=== PATIENT | male | born 1960 | race Caucasian/White ===

== ENCOUNTER 2020-08-15 06:18 | Emergency (ER) | payer OTHER, SELFPAY ==
[2020-08-15 06:49] VITALS: BP 151/92; PULSE 93; RESP 16; TEMP 37; O2SAT 98; BMI 31.5
--- NOTE | 2020-08-15 07:05 | ED.MALEGU ---
HPI - Male Genitourinary General Chief complaint: Urogenital-Male Stated complaint: rectal pain Time Seen by Provider: 08/15/20 06:40 Source: patient Mode of arrival: ambulatory Limitations: no limitations History of Present Illness HPI Narrative: 60-year-old male who presents emergency department for evaluation of rectal pain. The patient states the 4 days prior he was moving his bowels when he sneezed while he was on the toilet. He states that he developed immediate pain in his rectal area. Since the onset of pain, he has had severe rectal pain which is constant, sharp, worse with sitting and with bowel movements. Patient states he does have a history of hemorrhoids. He also has a skin tag in the area of his rectum and he states that this skin tag is extremely painful as well. Patient states that he does move his bowels daily and does not believe these constipated. The patient does have a history of chronic back pain and does take oxycodone 10 mg 4 times a day. He states that this medication is not helping his rectal pain. The pain is currently 10/10. He has been soaking in warm baths and this does help his pain. He has not done any other treatments on his hemorrhoid. Related Data Allergies Allergy/AdvReac Type Severity Reaction Status Date / Time morphine [MORPHINE] Allergy Intermediate HIVES Unverified 11/02/19 14:54 Review of Systems Review of Systems: Yes all other systems are reviewed and are negative [facility] [place] Past Medical History [facility] [place] Narrative: Past medical history: chronic neck and back pain. Past surgical history: Cervical and lumbar spinal fusions. Social history: He denies tobacco, alcohol and drug use. Physical Exam Vital Signs: Vital Signs: Last Vital Signs Temp 98.6 F 08/15/20 06:49 Pulse 93 08/15/20 06:49 Resp 16 08/15/20 06:49 BP 151/92 H 08/15/20 06:49 Pulse Ox 98 08/15/20 06:49 Body Mass Index 31.5 Const: General: cooperative and healthy appearing Nutritional Appearance: average body habitus Orientation/consciousness: oriented to person and oriented to place Limitations: no limitations HENMT: Head: Yes normocephalic and Yes atraumatic Eyes: General: appearance normal, both eyes and all related structures Resp: Effort & Inspection: normal respiratory effort : Other: The patient does have a skin tag at the 3 o'clock position around the rectumon his buttocks areawhich appears to be normal, with no inflammation, no discoloration, no tenderness palpation. the patient does have a 1 cm inflamed hemorrhoid at the 3 o'clock position. The hemorrhoid is soft but tender to palpation, does not appear to be clotted in there was no bleeding at this time. Neuro: Other: Nonfocal General: oriented to person and oriented to place Psych: Appearance: grossly normal and well kempt Mental Status: mental status grossly normal Speech and movement: Normal speech and movement present Affect: normal affect Course Course Course Narrative: 60-year-old male who presents emergency department for evaluation of severe rectal pain x4 days. Physical examination is consistent with an inflamed hemorrhoid, at this time I do not think that the hemorrhage is thrombosed. He does have a skin tag lateral to the rectum which appears to be uninvolved in his pain, there is no evidence of cellulitis or ischemic changes. At this time I do not think that the patient needs a thrombectomy of his hemorrhoid since I do not think it is clotted in the did discuss this with him. Patient was started on preparation H with hydrocortisone cream 4 times a day, preparation H suppositories twice a day and after each bowel movement, Metamucil 1 tsp in 8 oz of water twice a day and Colace 100 mg twice a day. Patient has seen Dr. Lopez in the past and he was advised to follow-up his it solutions sales consultant in 4-7 days if he is not better, he was also given the name of the on-call surgeon as well. The patient was given verbal and printed instructions prior to discharge. The patient was advised to follow-up with their PCP in 2 days and to return to the emergency department if their symptoms get worse or if they develop any new symptoms that are concerning to them Discharge Plan Discharge Clinical Impression: Hemorrhoids, external, Pain in rectum Patient Disposition: Home, Self-Care Instructions: Hemorrhoids (ED) Additional Instructions: Your pain is caused by an inflamed hemorrhoid. You do have a skin tag outside of your rectum but this is not tender and I do not think that it is causing the pain. Use preparation H with hydrocortisone cream 4 times a day on the hemorrhoid and insert a small amount into rectum using the attachment that comes with the hemorrhoid cream. Also apply this cream after bowel movement. Use preparation H suppositories twice a day and after each bowel movement. Take Colace ( this is a stool softener) twice a day Take Metamucil 1 tsp in 8 oz of water twice a day. uses medications for 2 weeks. Sit on a heating pad on low for soak in a bathtub for times a day to increase the blood flow to the hemorrhoid to help the healing process. Follow-up with your it solutions sales consultant, Dr. Lopez within 1 week for follow-up evaluation to make sure that the hemorrhoid is not thrombosed ( has a blood clot in). You can also follow-up with our on-call surgeon, Referrals: Castro Lopez [Physician] - 1 week ( rectal pain secondary to inflamed hemorrhoid) Darlene Salazar MD [Physician] - 1 week ( rectal pain secondary to inflamed hemorrhoid)
== END 2020-08-15 07:35 | disposition home or self-care (01) ==
LOC: HO.ED 07:18
PROVIDERS: Emergency Provider Emergency Medicine Emergency Medical Services; PCP Internal Medicine
DX: K64.4 Residual hemorrhoidal skin tags (principal); G89.29 Other chronic pain; M54.9 Dorsalgia, unspecified; Z79.891 Long term (current) use of opiate analgesic
CPT/HCPCS: 99283

== ENCOUNTER → 2020-08-22 14:04 | Outpatient (BNVA) | payer OTHER, SELFPAY | PROVIDERS: PCP Internal Medicine; Visit Provider Surgery | DX: K60.3 Anal fistula (principal) | CPT/HCPCS: 46600; 99202 ==

== ENCOUNTER 2020-09-20 05:57 | Day surgery (SDC) | payer OTHER, SELFPAY ==
[2020-09-13 14:27] VITALS: BMI 30.7
--- NOTE | 2020-09-19 08:26 | P.CONAN_ITS ---
Documented by User: Katarzyna Alessia 09/19/20 08:27 HPI - Anesthesia Eval Consult details Narrative: 60yo M for Exam Under Anesthesia, Poss Seton, Poss Fistulotomy Chronic opioids PMFSH Active Problems Active Problems: All Active Problems (Updated 09/13/20 @ 14:27 by Joyce Williamson) Anal fistula (Acute) Asthma (Acute) Hypertension (Acute) Past Medical History Medical History Anal fistula Asthma Back pain COVID-19 vaccine series completed History of COVID-19 Hx of fracture of skull Hypertension Peptic ulcer Sleep apnea Family History Family History Mother Colon cancer Father Pancreatic cancer Brother Brain tumor Surgical History Surgical History H/O colonoscopy History of back surgery History of carpal tunnel surgery History of knee surgery History of lumbar fusion Hx of carpal tunnel repair Hx of cervical discectomy Hx of decompression of ulnar nerve Hx of nasal septoplasty Social History Social History Do you presently have visiting nurse or other home services: No Alcohol intake: former Patient Tobacco Use Status: Never used Tobacco Use of substances other than those prescribed or required for medical reasons: No Have you been hit, kicked, punched, or otherwise hurt by someone within the past year? If so, by whom?: No Are you DNR?: No Advance Directives: No Advance Directives Information Provided: Yes (does not have a HCP) Advance Directives on File: No Recently lost weight without trying: No Eating poorly because of decreased appetite: No Nutrition Risks: No Nutritional Risk Poor oral hygiene: No Meds Allergies Allergy/AdvReac Type Severity Reaction Status Date / Time morphine [MORPHINE] Allergy Intermediate hives/diaph Verified 09/20/20 06:21 oresis Home Medications Medication Instructions Recorded Confirmed Last Taken Type albuterol sulfate 90 mcg/actuation 2 puff INHALATION QID 08/22/20 09/13/20 Unknown History aerosol inhaler amlodipine 10 mg tablet 10 mg PO DAILY 08/22/20 09/13/20 09/20/20 05:30 History fluticasone propionate 50 1 spray INTRANASAL DAILY 08/22/20 09/13/20 Unknown History mcg/actuation nasal spray,suspension oxycodone 10 mg tablet 10 mg PO Q6H 08/22/20 09/13/20 09/20/20 05:30 History potassium citrate 10 mEq (1,080 10 meq PO DAILY 08/22/20 09/13/20 Unknown History mg) tablet,extended release tizanidine 4 mg tablet 4 mg PO Q8H PRN 08/22/20 09/13/20 Unknown History multivitamin 1 tab PO DAILY 09/13/20 09/13/20 Unknown History Exam Exam Date and Time: September 19, 2020 0826 Height,Weight and Vital Signs: Height 5 ft 10 in Weight 97.2 kg Assessment and Plan Assessment Anesthesia Assessment: Chart Reviewed Documented by User: Rosemary Kelly MD 09/20/20 07:35 [facility] Past Medical History Medical History Anal fistula Asthma Back pain COVID-19 vaccine series completed History of COVID-19 Hx of fracture of skull Hypertension Peptic ulcer Sleep apnea Family History Family History Mother Colon cancer Father Pancreatic cancer Brother Brain tumor Surgical History Surgical History H/O colonoscopy History of back surgery History of carpal tunnel surgery History of knee surgery History of lumbar fusion Hx of carpal tunnel repair Hx of cervical discectomy Hx of decompression of ulnar nerve Hx of nasal septoplasty History of Problems with Anesthesia: No Social History Social History Do you presently have visiting nurse or other home services: No Alcohol intake: former Patient Tobacco Use Status: Never used Tobacco Use of substances other than those prescribed or required for medical reasons: No Have you been hit, kicked, punched, or otherwise hurt by someone within the past year? If so, by whom?: No Are you DNR?: No Advance Directives: No Advance Directives Information Provided: Yes (does not have a HCP) Advance Directives on File: No Recently lost weight without trying: No Eating poorly because of decreased appetite: No Nutrition Risks: No Nutritional Risk Poor oral hygiene: No Meds Allergies Allergy/AdvReac Type Severity Reaction Status Date / Time morphine [MORPHINE] Allergy Intermediate hives/diaph Verified 09/20/20 06:21 oresis Home Medications Medication Instructions Recorded Confirmed Last Taken Type albuterol sulfate 90 mcg/actuation 2 puff INHALATION QID 08/22/20 09/13/20 Unknown History aerosol inhaler amlodipine 10 mg tablet 10 mg PO DAILY 08/22/20 09/13/20 09/20/20 05:30 History fluticasone propionate 50 1 spray INTRANASAL DAILY 08/22/20 09/13/20 Unknown History mcg/actuation nasal spray,suspension oxycodone 10 mg tablet 10 mg PO Q6H 08/22/20 09/13/20 09/20/20 05:30 History potassium citrate 10 mEq (1,080 10 meq PO DAILY 08/22/20 09/13/20 Unknown History mg) tablet,extended release tizanidine 4 mg tablet 4 mg PO Q8H PRN 08/22/20 09/13/20 Unknown History multivitamin 1 tab PO DAILY 09/13/20 09/13/20 Unknown History Exam Airway Mallampati Class: III TM Dist: >3cm Neck ROM: Full Loose/Missing/Broken Teeth: No Heart: RRR Lungs: CTA Assessment and Plan Final Anesthetic Review History of Problems with Anesthesia: No NPO: Yes ASA Class: III Final Preanesthetic Review: Meds/Allgs Chart Reviewed, Consent Obtained/Reviewed and Anes Risks/Benef Reviewed Patient Risk: Intermediate Procedure Risk: Intermediate Anesthetic Plan Anesthetic Plan: GA Disposition: Standard PACU
[2020-09-20] VITALS (13 sets, daily range): BP systolic 133–158; BP diastolic 84–95; PULSE 70–84; RESP 17–20; TEMP 36.7–37.2; O2SAT 94–99; BMI 30.8
[2020-09-20] MEDS: Lactated Ringers 1,000 ML 100 ML IVCONT (06:38)
--- NOTE | 2020-09-20 07:22 | MHC.SHP ---
Pre-Procedural Eval Section A Date of Service: 09/20/20 Section B Chief Complaint: anal fistula Allergies: Allergies Allergy/AdvReac Type Severity Reaction Status Date / Time morphine [MORPHINE] Allergy Intermediate hives/diaph Verified 09/20/20 06:21 oresis Plan I have reviewed the history and physical and performed a pertinent physical examination on my patient. No changes have occurred unless specified.
--- NOTE | 2020-09-20 08:15 | P.OP_ITS ---
Operative Note Operative Note Date of Service: 09/20/20 Narrative: Preop diagnosis: anal fistula Postop diagnosis: Anal fistula Procedure: Exam under anesthesia, seton placement Surgeon: Kaveh Bowling MD The patient is a 60-year-old male with note of an air recurrent pain, swelling and drainage on the right side of his anus. He was seen in the office and was noted to have what appeared to be an external fistulous opening on right perianal area just about 2 cm from the verge. I therefore explained to him the option of proceeding with exam under l anesthesia with likely seton placement versus fistulotomy. He understood the technique of the procedure as well as the risks, benefits, and alternatives. He was brought to the operating room and placed in prone mich-knife position under general anesthesia via endotracheal tube. The buttocks were retracted with wide tape laterally. The perianal area was prepped and draped in the usual sterile fashion. A surgical time-out was done. The patient received Cefotan 2 g IV preoperatively. I infiltrated the perianal area with lidocaine 1%. I inserted a Lilia Madrid retractor and examined the anal canal circumferentially. The external fistulous opening was noted on the right lateral aspect about 2 cm from the anal verge. I could not see an obvious internal sinus opening. I inserted a probe through the external for sinus and this was gently advanced through the tract. I could feel the probe radially towards the postero lateral area of the anal canal at the dentate line. I confirmed the location of the internal sinus by injecting the external opening with hydrogen peroxide and saw the drainage through same inter nal sinus opening at the dentate line. I therefore advanced the probe through the tract into this internal sinus opening. I passed a seton through the tract using the probe. The seton around the tract and used a silk 2 0 tie to closed this seton as a loop. I shortened the tract by using electrocautery on the external sinus. I then infiltrated the perianal area with Marcaine 0.5% for postop analgesia The procedure was then completed The patient tolerated procedure well. There were no complication noted. Initial fine counts of sponges and instruments were correct. Estimated blood loss about 3 cc. The patient was then extubated without difficulty and transferred to the recovery room with stable vital signs.
--- NOTE | 2020-09-20 08:22 | PM.OP ---
Brief Operative Note Date of Service: 09/20/20 Pre-op diagnosis: Anal fistula Post-op diagnosis: same Procedure: Exam under anesthesia, placement of seton Surgeon: Kaveh Bowling MD Anesthesia: GETA Was an Cash Register Operator used for this Procedure?: No Estimated blood loss (mL): 2 Pathology: none sent Condition: stable Disposition: PACU
[2020-09-20] MEDS: Acetaminophen 325 MG TABLET 650 MG PO (08:55)
[2020-09-20] MEDS: fentaNYL citrate/PF 100 MCG/2 ML VIAL 25 MCG IVPUSH ×2 (08:55→09:57)
[2020-09-20] MEDS: oxyCODONE HCl Immed Release 5 MG TABLET PO (08:56)
== END 2020-09-20 10:36 | disposition home or self-care (01) ==
PROVIDERS: PCP Internal Medicine; Visit Provider Surgery
PROC: (CPT 46020; principal; 2020-09-20 07:30)
DX: K60.3 Anal fistula (principal); J45.909 Unspecified asthma, uncomplicated; I10 Essential (primary) hypertension; G47.33 Obstructive sleep apnea (adult) (pediatric); Z99.89 Dependence on other enabling machines and devices; Z79.51 Long term (current) use of inhaled steroids; Z79.899 Other long term (current) drug therapy; Z88.8 Allergy status to other drugs, medicaments and biological substances; Z86.16 Personal history of COVID-19
CPT/HCPCS: 46020; J1100; J2250; J2405; J3010

== ENCOUNTER → 2020-10-03 14:54 | Outpatient (BNVA) | payer OTHER, SELFPAY | PROVIDERS: PCP Internal Medicine; Referring Provider Internal Medicine; Visit Provider Surgery | DX: K60.3 Anal fistula (principal) | CPT/HCPCS: 99212 ==

== ENCOUNTER → 2020-11-01 13:44 | Outpatient (BNVA) | payer OTHER, SELFPAY | PROVIDERS: PCP Internal Medicine; Visit Provider Surgery | DX: Z48.815 Encounter for surgical aftercare following surgery on the digestive system (principal); Z87.898 Personal history of other specified conditions | CPT/HCPCS: 99212 ==

== ENCOUNTER → 2020-11-21 14:34 | Outpatient (BNVA) | payer OTHER, SELFPAY | PROVIDERS: PCP Internal Medicine; Referring Provider Internal Medicine; Visit Provider Surgery | DX: Z48.89 Encounter for other specified surgical aftercare (principal) | CPT/HCPCS: 99212 ==

== ENCOUNTER → 2020-12-12 15:13 | Outpatient (BNVA) | payer OTHER, SELFPAY | PROVIDERS: PCP Internal Medicine; Referring Provider Internal Medicine; Visit Provider Surgery | DX: Z48.815 Encounter for surgical aftercare following surgery on the digestive system (principal); K60.3 Anal fistula | CPT/HCPCS: 99212 ==

== ENCOUNTER → 2021-01-13 15:27 | Outpatient (BNVA) | payer OTHER, SELFPAY | PROVIDERS: PCP Internal Medicine; Referring Provider Internal Medicine; Visit Provider Surgery | DX: K60.3 Anal fistula (principal) | CPT/HCPCS: 99212 ==

== ENCOUNTER → 2021-02-12 14:02 | Outpatient (BNVA) | payer OTHER, SELFPAY | PROVIDERS: PCP Internal Medicine; Referring Provider Internal Medicine; Visit Provider Surgery | DX: K60.3 Anal fistula (principal) | CPT/HCPCS: 99212 ==

== ENCOUNTER → 2021-03-20 10:12 | Outpatient (BNVA) | payer OTHER, SELFPAY | PROVIDERS: PCP Internal Medicine; Visit Provider Surgery | DX: K60.3 Anal fistula (principal) | CPT/HCPCS: 99212 ==

== ENCOUNTER → 2021-04-17 08:39 | Outpatient (BNVA) | payer OTHER, SELFPAY | PROVIDERS: PCP Internal Medicine; Referring Provider Internal Medicine; Visit Provider Surgery | DX: K60.3 Anal fistula (principal) | CPT/HCPCS: 99212 ==

== ENCOUNTER 2022-01-22 23:34 | Emergency (ER) | payer OTHER, SELFPAY ==
--- NOTE | 2022-01-22 | ECG_ITS ---
Test Reason : abdominal pain Blood Pressure : / mmHG Vent. Rate : 085 BPM Atrial Rate : 085 BPM P-R Int : 168 ms QRS Dur : 104 ms QT Int : 370 ms P-R-T Axes : 035 -35 -01 degrees QTc Int : 440 ms Normal sinus rhythm Left axis deviation Nonspecific T wave abnormality Abnormal ECG No previous ECGs available Referred By: Generic ED Physician Electronically Signed By:ROSAS WINSLOW MD
[2022-01-22 23:39] VITALS: BP 154/91; PULSE 94; RESP 20; TEMP 36.2; O2SAT 97; BMI 30.8
[2022-01-23 00:22] LABS: MANUAL DIFF FLAG NO
[2022-01-23 00:23] LABS: Basophils Percent Auto 0.3 % (0-2); Eosinophils Percent Auto 1.9 % (0-4); Hematocrit 41.2 % (42.0-52.0); Imm Gran Abs Auto 0.01 X10*3/uL (0.00-0.03); Imm Gran Pct Auto 0.2 % (0.0-0.4); Lymphocytes Percent Auto 18.3 % (20-40); Mean Corpuscular Hemoglobin 28.7 pg (27.0-33.0); Mean Corpuscular Volume 84.4 fL (80.0-98.0); Mean Platelet Volume 8.8 fL (9.4-12.4); Monocytes Percent Auto 5.8 % (2-11); Neutrophils Absolute Auto 4.3 x10*3/uL (2.0-8.3); Neutrophils Percent Auto 73.5 % (45-73); Platelet Count 188 X10*3/uL (160-400); Red Blood Count 4.88 X10*6/uL (4.60-5.80); Red Cell Distribution Width 13.1 % (11.0-16.0); White Blood Count 5.9 X10*3/uL (4.8-10.8)
[2022-01-23 00:24] LABS: Eosinophils Absolute Auto 0.1 X10*3/uL (0.0-0.4); Lymphocytes Absolute Auto 1.1 X10*3/uL (1.2-4.9); Monocytes Absolute Auto 0.3 X10*3/uL (0.1-1.2)
[2022-01-23 00:42] LABS: Alanine Aminotransferase 33 U/L (0-40); Albumin Level 4.2 g/dL (3.5-5.0); Alkaline Phosphatase 90 U/L (39-117); Anion Gap 11 (12-20); Aspartate Amino Transferase 49 U/L (5-37); Bilirubin Total 1.2 mg/dL (0.0-1.0); Blood Urea Nitrogen 10 mg/dL (9-16); Calcium 9.3 mg/dL (8.4-10.2); Carbon Dioxide 28 mmol/L (22-29); Chloride 104 mmol/L (96-108); Creatinine Clr Calc Pharmacy 109.4; Estimated Glomerular Filt Rate > 60; Glucose Random 162 mg/dL (60-115); Lipase 33 U/L (8-78); Potassium 3.3 mmol/L (3.3-5.1); Sodium 140 mmol/L (135-145); Total Protein 6.5 g/dL (6.5-8.0)
--- NOTE | 2022-01-23 03:40 | ED_ITS ---
HPI - Abdominal Pain General Chief Complaint: Abdominal Pain Stated Complaint: stomach cramps Time Seen by Provider: 01/23/22 03:40 Source: patient Mode of arrival: ambulatory Limitations: no limitations History of Present Illness HPI narrative: Patient with history of asthma and hypertension history of remote peptic ulcer disease with lately no significant abdominal complaints had spicy chicken wings earlier within 1 hour of eating food noticed pain in epigastric area sharp in character nauseated patient vomited once and feeling better Related Data Home Medications Medication Instructions Recorded Confirmed albuterol sulfate 90 mcg/actuation 2 puff inhalation QID 08/22/20 04/17/21 aerosol inhaler amlodipine 10 mg tablet 10 mg PO DAILY 08/22/20 04/17/21 fluticasone propionate 50 1 spray intranasal DAILY 08/22/20 04/17/21 mcg/actuation nasal spray,suspension oxycodone 10 mg tablet 10 mg PO Q6H 08/22/20 04/17/21 potassium citrate 10 mEq (1,080 10 meq PO DAILY 08/22/20 04/17/21 mg) tablet,extended release tizanidine 4 mg tablet 4 mg PO Q8H PRN Muscle Spasm 08/22/20 04/17/21 multivitamin 1 tab PO DAILY 09/13/20 04/17/21 Previous Rx's Medication Instructions Recorded ibuprofen 600 mg tablet 600 mg PO Q6H PRN pain #30 tabs 09/20/20 psyllium husk 3.4 gram/5.4 gram 1 tsp PO BID #660 grams 10/03/20 oral powder (Metamucil) pantoprazole 40 mg tablet,delayed 40 mg PO DAILY #30 tabs 01/23/22 release (Protonix) sucralfate 1 gram tablet 1 g PO BID #60 tabs 01/23/22 Allergies Allergy/AdvReac Type Severity Reaction Status Date / Time morphine [MORPHINE] Allergy Intermediate hives/diaph Verified 01/22/22 23:41 oresis Review of Systems Review of Systems Yes all other systems are reviewed and are negative [facility] Past Medical History Medical History Anal fistula Asthma Back pain COVID-19 vaccine series completed History of COVID-19 Hx of fracture of skull Hypertension Peptic ulcer Sleep apnea Surgical History H/O colonoscopy History of back surgery History of carpal tunnel surgery History of knee surgery History of lumbar fusion Hx of carpal tunnel repair Hx of cervical discectomy Hx of decompression of ulnar nerve Hx of nasal septoplasty Family History Family History Mother Colon cancer Father Pancreatic cancer Brother Brain tumor Social History Social History Do you presently have visiting nurse or other home services: No Alcohol intake: former Patient Tobacco Use Status: Never used Tobacco Advance Directives: No Advance Directives Information Provided: Yes Physical Exam ED Vital Signs: Vital Signs - 24 hr 01/22/22 23:39 01/23/22 03:47 Temperature 97.2 F 9.3 F L Pulse Rate 94 86 Respiratory Rate 20 18 Blood Pressure 154/91 H 149/88 H Pulse Oximetry 97 97 Oxygen Delivery Method Room Air BMI result Body Mass Index 30.8 Appearance: Alert. Oriented X3. No acute distress. Eyes: PERRLA, No Nystagmus ENT: Pharynx normal. Oral Mucosa moist Neck: Normal inspection. Neck supple. CVS: Normal heart rate and rhythm. Pulses normal. Respiratory: No respiratory distress. Equal air entry bilateral, no wheezing/rales/rhonchi Abdomen: Soft , tender epigastric area. Bowel sounds are present, no mass palpable, no CVA tenderness Skin: Skin warm and dry. Normal skin color. Normal skin turgor. Extremities: No lower extremity edema. No calf tenderness Neuro: Oriented X 3. No motor deficit. Medical Decision Making Medical Decision Making MDM Narrative: Patient with epigastric pain workup is negative improved after taking Tums at home EKG without any ischemic changes 2 sets of troponin also negative patient denies any pain at this time will discharge patient home on Protonix Differential Diagnoses: Differential diagnosis (Pancreatitis /cholecystitis/ gastritis /peptic ulcer disease) Independent interpretation of EKG, rhythm strip, radiology study: Independent interp EKG,rhythm strip, radiology study I performed an independent interpretation of the: EKG My interpretation is normal sinus rhythm left axis deviation heart rate 85 beats per minute no acute ST deviation and no acute ischemic Medications Administered Discontinued Medications Generic Name Dose Route Start Last Admin Trade Name Freq PRN Reason Stop Dose Admin Omeprazole 40 mg 01/23/22 03:49 01/23/22 04:52 Omeprazole 40 Mg Capsule.Dr PO 01/23/22 03:50 40 mg ONCE ONE Administration Discharge Plan Discharge Clinical Impression: Acute gastritis Patient Disposition: Home, Self-Care Instructions: Gastritis (ED) Additional Instructions: Avoid spicy / fried food Tums/Maalox as advised Protonix 40 mg daily Follow with PCP/leadership intern Prescriptions: New pantoprazole [Protonix] 40 mg tablet,delayed release (DR/EC) 40 mg PO DAILY Qty: 30 0RF sucralfate 1 gram tablet 1 g PO BID Qty: 60 0RF No Action multivitamin Tablet 1 tab PO DAILY ibuprofen 600 mg tablet 600 mg PO Q6H PRN (Reason: pain) Qty: 30 0RF amlodipine 10 mg tablet 10 mg PO DAILY oxycodone 10 mg tablet 10 mg PO Q6H potassium citrate 10 mEq (1,080 mg) tablet extended release 10 meq PO DAILY albuterol sulfate 90 mcg/actuation HFA aerosol inhaler 2 puff inhalation QID fluticasone propionate 50 mcg/actuation spray,suspension 1 spray intranasal DAILY tizanidine 4 mg tablet 4 mg PO Q8H PRN (Reason: Muscle Spasm) Metamucil 3.4 gram/5.4 gram powder 1 tsp PO BID Qty: 660 0RF Rx Instructions: mix into at least 4 oz water or juice before administering Interventions: ED Discharge Assessment Last Done: 01/23/22 04:59 Discharge Date/Time: 01/23/22 05:00
[2022-01-23 03:47] VITALS: BP 149/88; PULSE 86; RESP 18; TEMP -12.6; TEMP 9.3; O2SAT 97
[2022-01-23 03:55] LABS: Appearance Urine Turbid; Color Urine Yellow; Glucose Urine UA Negative (Negative); Leukocyte Esterase Urine Negative (Negative); Nitrite Urine Negative (Negative); Specific Gravity - Urine 1.015 (1.005-1.025); Urine Blood Negative (Negative); Urine Ketones Negative (Negative); Urine Protein Negative (Neg-Trace)
[2022-01-23 04:22] LABS: Troponin-I High Sensitivity 5.7 ng/L (<3.5-35.0)
[2022-01-23] MEDS: Omeprazole 40 MG CAPSULE.DR PO (04:52)
== END 2022-01-23 05:00 | disposition home or self-care (01) ==
PROVIDERS: Emergency Provider Internal Medicine; PCP Internal Medicine
DX: K29.00 Acute gastritis without bleeding (principal); R94.31 Abnormal electrocardiogram [ECG] [EKG]; Z79.899 Other long term (current) drug therapy
CPT/HCPCS: 36415; 80053; 81003; 83690; 84484; 85025; 93005; 99283; 99284

== ENCOUNTER 2024-01-02 22:58 | Emergency (ER) | payer OTHER, SELFPAY ==
--- NOTE | ~2024-01-02 | CT_ITS ---
EXAMINATION: CT ABDOMEN AND PELVIS WITHOUT CONTRAST CLINICAL INFORMATION: Left flank pain with history of bilateral stones COMPARISON: CT abdomen pelvis 12/16/2006 (report only) TECHNIQUE: Multidetector volumetric imaging was performed from the superior aspect of the liver through the pubic symphysis. Sagittal and coronal reformatted images were obtained on the technologist's workstation. This CT examination was performed using dose optimization techniques as appropriate, variously including the following: *Automated exposure control *Adjustment of mA and/or kV according to patient size (this includes techniques or standardized protocols for targeted exams where dose is matched to indication/reason for exam; i.e. extremities or head) *Use of iterative reconstruction technique DLP: 632 mGy-cm FINDINGS: LUNG BASES: Bronchial thickening is present at the lung bases along with some mild cylindrical bronchiectasis. Bibasilar scarring is present. LIVER, GALLBLADDER, AND BILIARY TREE: The liver is normal in size, shape, and attenuation. No focal hepatic lesion or biliary ductal dilatation is present. The gallbladder is unremarkable with no evidence of radiopaque gallstones, gallbladder wall thickening, or obvious pericholecystic inflammatory changes. PANCREAS: Unremarkable. SPLEEN: The spleen is enlarged measuring 14.4 cm in greatest transverse dimension ADRENAL GLANDS: Unremarkable. KIDNEYS AND URETERS: There are bilateral nonobstructing intrarenal calculi present. On the left, there is mild hydronephrosis with a nonobstructing stone in the very proximal ureter measuring 8.4 x 5.5 mm. The stone measures 880 Hounsfield units. There is perinephric stranding on the left. The biggest nonobstructing stone in the left kidney ism in the mid kidney measuring 5 mm. The largest nonobstructing stone in the right kidney measures 4 mm at the lower pole. No renal masses. BLADDER: Unremarkable. GASTROINTESTINAL TRACT: The small and large bowel are unremarkable. The appendix is unremarkable. ABDOMINAL WALL: No significant hernia is appreciated. LYMPH NODES: No retroperitoneal lymphadenopathy is seen. There is mild esther changes in the mesentery of questionable significance. VASCULAR: Unremarkable. PELVIC VISCERA: There is marked BPH. Seminal vesicles appear normal. OSSEOUS STRUCTURES: Degenerative changes are noted in the lumbar spine most marked at L2-L3. There is posterior fixation with pedicular screws along with interbody devices at L3-L4 and L4-L5. CT/CT abdomen pelvis wo IV con IMPRESSION: 1. Bilateral nonobstructing intrarenal calculi. 2. There is mild left-sided hydronephrosis with a 8.4 x 5.5 mm stone in the very proximal left ureter. 3. Incidental note made of bronchial thickening and mild cylindrical bronchiectasis at the lung bases, splenomegaly, marked BPH and degenerative changes in the spine with postoperative changes. Fleischner guidelines were followed. Electronically signed by: Brian Esparza MD 01/03/2024 12:59 AM ROSAMARIA GARCIA
[2024-01-02 23:01] VITALS: BP 173/96; PULSE 73; RESP 20; TEMP 36.5; O2SAT 100; BMI 31.6
[2024-01-02 23:23] LABS: MANUAL DIFF FLAG NO
[2024-01-02 23:24] LABS: Basophils Percent Auto 0.3 % (0-2); Eosinophils Absolute Auto 0.1 X10*3/uL (0.0-0.4); Eosinophils Percent Auto 0.5 % (0-4); Hematocrit 45.1 % (42.0-52.0); Hemoglobin 15.5 g/dl (14.0-18.0); Imm Gran Abs Auto 0.02 X10*3/uL (0.00-0.03); Imm Gran Pct Auto 0.2 % (0.0-0.4); Lymphocytes Percent Auto 9.9 % (20-40); Mean Corpuscular HGB Conc 34.4 g/dl (31.0-36.0); Mean Corpuscular Hemoglobin 29.1 pg (27.0-33.0); Mean Corpuscular Volume 84.8 fL (80.0-98.0); Mean Platelet Volume 9.3 fL (9.4-12.4); Monocytes Absolute Auto 0.4 X10*3/uL (0.1-1.2); Monocytes Percent Auto 4.1 % (2-11); Neutrophils Absolute Auto 8.6 x10*3/uL (2.0-8.3); Platelet Count 215 X10*3/uL (160-400); Red Blood Count 5.32 X10*6/uL (4.60-5.80); White Blood Count 10.1 X10*3/uL (4.8-10.8)
[2024-01-02] MEDS: 0.9 % Sodium Chloride 1,000 ML 999 ML IVCONT (23:31)
[2024-01-02] MEDS: ondansetron HCL 4 MG/2 ML VIAL IVPUSH (23:32)
[2024-01-02] MEDS: Ketorolac Tromethamine 30 MG/ML VIAL IVPUSH (23:32)
--- NOTE | 2024-01-02 23:42 | ED.ABDPAIN ---
HPI - Abdominal Pain General Chief Complaint: Abdominal Pain Stated Complaint: vomiting, fever, kidney stone issues Time Seen by Provider: 01/02/24 23:21 Source: patient Mode of arrival: ambulatory Limitations: no limitations History of Present Illness ED Provider: Dr. Marian El HPI narrative: Patient comes to the emergency room complaining of 5 hours of left-sided flank pain. Patient states that he is known to have by daughter kidney stones. Patient has had ablations, stents, patient known to produce a significant amount of kidney stones. Patient denies hematuria or dysuria, no fever chills. Patient complaining of nausea and vomiting due to the pain. Related Data Home Medications ?Medication ?Instructions ?Recorded ?Confirmed albuterol sulfate 90 mcg/actuation 2 puff inhalation QID 08/22/20 04/17/21 aerosol inhaler amlodipine 10 mg tablet 10 mg PO DAILY 08/22/20 04/17/21 fluticasone propionate 50 1 spray intranasal DAILY 08/22/20 04/17/21 mcg/actuation nasal spray,suspension oxycodone 10 mg tablet 10 mg PO Q6H 08/22/20 04/17/21 potassium citrate 10 mEq (1,080 10 meq PO DAILY 08/22/20 04/17/21 mg) tablet,extended release tizanidine 4 mg tablet 4 mg PO Q8H PRN Muscle Spasm 08/22/20 04/17/21 multivitamin 1 tab PO DAILY 09/13/20 04/17/21 Previous Rx's ?Medication ?Instructions ?Recorded ibuprofen 600 mg tablet 600 mg PO Q6H PRN pain #30 tabs 09/20/20 psyllium husk 3.4 gram/5.4 gram 1 tsp PO BID #660 grams 10/03/20 oral powder (Metamucil) pantoprazole 40 mg tablet,delayed 40 mg PO DAILY #30 tabs 01/23/22 release (Protonix) sucralfate 1 gram tablet 1 g PO BID #60 tabs 01/23/22 hydromorphone 2 mg tablet 2 mg PO . b.i.d. #6 tabs 01/03/24 (Dilaudid) ketorolac 10 mg tablet 10 mg PO Q8H PRN pain #14 tabs 01/03/24 Allergies Allergy/AdvReac Type Severity Reaction Status Date / Time morphine [MORPHINE] Allergy Intermediate hives/diaph Verified 01/02/24 23:02 oresis Review of Systems Review of Systems Constitutional : No Weight loss, No Fever, No Chills, No Night Sweats, No Fatigue, No Malaise ENT/Mouth : No Hearing loss, No Ear Pain, No Nasal Congestion, No Sinus Pain, No Hoarseness, No sore throat, No Rhinorrhea, No Swallowing Difficulty Eyes: No Eye Pain, No Swelling, No Redness, No Foreign Body, No Discharge, No Vision Changes Cardiovascular : No Chest Pain, No SOB, No Dyspnea on Exertion, No Orthopnea, No Edema, No Palpitations Respiratory : No Cough, No Sputum, No Wheezing, No Smoke Exposure, No Dyspnea Gastrointestinal : complaining of nausea and vomiting, No Diarrhea, No Constipation, No abdominal Pain, No Hematochezia, No Melena Genitourinary : no irregular bleeding, No Dysuria, No Urinary Frequency, No Hematuria, No Urinary Incontinence, No Urgency, Complaining of severe left-sidedFlank Pain, No Urinary Flow Changes, No Hesitancy Musculoskeletal : No joint pain, No Myalgias, No Joint Swelling Skin : No Skin Lesions, No rash Neuro : No Weakness, No Numbness, No Paresthesias, No Loss of Consciousness, No Dizziness, No Headache Psych : No Anxiety/Panic, No Depression, No SI/HI/AH/VH, No Social Issues, Heme/Lymph: No Bruising, No Bleeding,No Lymphadenopathy Endocrine : No Polyuria, No Polydipsia, No Temperature Intolerance PMFSH Past Medical History Medical History Back pain Hx of fracture of skull Peptic ulcer Sleep apnea History of COVID-19 COVID-19 vaccine series completed Anal fistula Asthma Hypertension Surgical History H/O colonoscopy History of back surgery History of carpal tunnel surgery History of knee surgery History of lumbar fusion Hx of carpal tunnel repair Hx of cervical discectomy Hx of decompression of ulnar nerve Hx of nasal septoplasty Family History Family History Mother Colon cancer Father Pancreatic cancer Brother Brain tumor Social History Social History Do you presently have visiting nurse or other home services: No Alcohol intake: former Patient Tobacco Use Status: Never used Tobacco Smoked in Last 30 Days: No Use of substances other than those prescribed or required for medical reasons: No Advance Directives: No Advance Directives Information Provided: Yes Do you have a plan to hurt others: No Plan Physical Exam ED Vital Signs: Vital Signs - 24 hr 01/02/24 23:01 01/03/24 02:25 Temperature 97.7 F 97.7 F Pulse Rate 73 77 Respiratory Rate 20 18 Blood Pressure 173/96 H 145/79 H Pulse Oximetry 100 98 Oxygen Delivery Method Room Air Room Air BMI result Body Mass Index 31.6 Const Other: Appearance: Alert. Oriented X3. patient looks very uncomfortable Eyes: Pupils equal, round and reactive to light. ENT: Pharynx normal. Neck: Normal inspection. Neck supple. No lymph nodes noted. No crepitus CVS: Normal heart rate and rhythm. Pulses normal. Normal S1 and S2 Respiratory: No respiratory distress. Breath sounds normal. No Wheezing. No rales Abdomen: Soft and nontender. No rigidity. No distention. patient has left-sided flank pain Skin: Skin warm and dry. Normal skin color. Normal skin turgor. Extremities: No lower extremity edema. No Lacerations. No Rash Neuro: Oriented X 3. No motor deficit. No sensory deficit. Moving all extremities. No slurred speech. CN 2 through 12 grossly intact Psych: calm, cooperative, normal affect Course Course Course Narrative: patient receiving IV fluids, Zofran, ketorolac - CT scan pending, labs pending - after IV ketorolac, patient is still not having significant pain relief. Patient was given a dose of Dilaudid Medical Decision Making Medical Decision Making [facility] Narrative: my interpretation of labs, no significant abnormality with hematology and chemistry - my interpretation of CT scan, there is a 8.5 mm x 5 mm stone at the UPJ on the left. - After a dose of ketorolac and Dilaudid, patient feeling much better. - I discussed with the patient that there is a high possibility that this stone may get stuck and become obstructive. Due to a size, unlikely that it will pass on its own, patient will likely need a lithotripsy or stent. - Admission was offered, could be seen by Urology earlier this morning. However, the patient states that he feels well to go home and follow-up with his urologist - patient takes oxycodone at home. I discussed with the patient that we will give him p.o. ketorolac, 1st dose given in the ED IV. And also in case of severe pain p.o. Dilaudid. discussed with the patient that this medication is to be taking with precaution, as it may cause overdose. Patient is narcotic resistance since he takes oxycodone at home. Patient's seems to take his medication appropriately, no suspicion of abuse of narcotics urinalysis negative for UTI Differential Diagnosis Differential Diagnoses: The differential diagnosis associated with the presentation includes ( renal colic, ureterolithiasis, pyelonephritis) Admission/Observation Consideration of admission/observation: Escalation of care including admission/observation considered Lab Data MDM Lab Attestation statement: I reviewed the patient's lab results. 01/02/24 23:19 01/02/24 23:19 Labs: Lab Results 01/02/24 01/03/24 Range/Units 23:19 02:30 WBC 10.1 (4.8-10.8) X10*3/uL RBC 5.32 (4.60-5.80) X10*6/uL Hgb 15.5 (14.0-18.0) g/dl Hct 45.1 (42.0-52.0) % MCV 84.8 (80.0-98.0) fL MCH 29.1 (27.0-33.0) pg MCHC 34.4 (31.0-36.0) g/dl RDW 13.0 (11.0-16.0) % Plt Count 215 (160-400) X10*3/uL MPV 9.3 L (9.4-12.4) fL Immature Gran % (Auto) 0.2 (0.0-0.4) % Neut % (Auto) 85.0 H (45-73) % Lymph % (Auto) 9.9 L (20-40) % Divide % (Auto) 4.1 (2-11) % Eos % (Auto) 0.5 (0-4) % Baso % (Auto) 0.3 (0-2) % Lymph # (Auto) 1.0 L (1.2-4.9) X10*3/uL Divide # (Auto) 0.4 (0.1-1.2) X10*3/uL Eos # (Auto) 0.1 (0.0-0.4) X10*3/uL Baso # (Auto) 0.0 (0.0-0.2) X10*3/uL Abs Immat Gran (auto) 0.02 (0.00-0.03) X10*3/uL Absolute Neuts (auto) 8.6 H (2.0-8.3) x10*3/uL Absolute Nucleated RBC 0.000 (0.0-0.012) X10*3/uL Nucleated RBC % (auto) 0.0 (0.0-0.2) /100WBC Sodium 140 (135-145) mmol/L Potassium 4.0 (3.3-5.1) mmol/L Chloride 104 (96-108) mmol/L Carbon Dioxide 23 (22-29) mmol/L Anion Gap 17 (12-20) BUN 11 (9-16) mg/dL Creatinine 1.02 (0.5-1.4) mg/dL Estim Creat Clear Calc 86.6 Estimated GFR > 60 Random Glucose 134 H (60-115) mg/dL Calcium 10.2 D (8.4-10.2) mg/dL Total Bilirubin 0.6 (0.0-1.0) mg/dL AST 29 (5-37) U/L ALT 25 (0-40) U/L Alkaline Phosphatase 98 (39-117) U/L Total Protein 7.8 (6.5-8.0) g/dL Albumin 4.6 (3.5-5.0) g/dL Urine Color Yellow Urine Appearance Clear Urine pH 7.5 (5.0-9.0) Ur Specific [place] 1.010 (1.005-1.025) Urine Protein Negative (Neg-Trace) mg/dL Urine Glucose (UA) Negative (Negative) mg/dL Urine Ketones Negative (Negative) mg/dL Urine Blood Small (1+) H (Negative) Urine Nitrite Negative (Negative) Ur Leukocyte Esterase Negative (Negative) Urine RBC 11-20 H (0-2) /HPF Urine WBC 0-5 (0-5) /HPF Ur Squamous Epith Cells 0-2 (0-2) /HPF Urine Bacteria None Seen (None Seen) Hyaline Casts 0-2 (0-2) /LPF Independent Interpretation I performed an independent interpretation of an: CT Scan Radiology Impression Discussion of test interpretation with radiology: I have reviewed the radiologist's reading. Radiologist Impression: FINDINGS: LUNG BASES: Bronchial thickening is present at the lung bases along with some mild cylindrical bronchiectasis. Bibasilar scarring is present. LIVER, GALLBLADDER, AND BILIARY TREE: The liver is normal in size, shape, and attenuation. No focal hepatic lesion or biliary ductal dilatation is present. The gallbladder is unremarkable with no evidence of radiopaque gallstones, gallbladder wall thickening, or obvious pericholecystic inflammatory changes. PANCREAS: Unremarkable. SPLEEN: The spleen is enlarged measuring 14.4 cm in greatest transverse dimension ADRENAL GLANDS: Unremarkable. KIDNEYS AND URETERS: There are bilateral nonobstructing intrarenal calculi present. On the left, there is mild hydronephrosis with a nonobstructing stone in the very proximal ureter measuring 8.4 x 5.5 mm. The stone measures 880 Hounsfield units. There is perinephric stranding on the left. The biggest nonobstructing stone in the left kidney ism in the mid kidney measuring 5 mm. The largest nonobstructing stone in the right kidney measures 4 mm at the lower pole. No renal masses. BLADDER: Unremarkable. GASTROINTESTINAL TRACT: The small and large bowel are unremarkable. The appendix is unremarkable. ABDOMINAL WALL: No significant hernia is appreciated. LYMPH NODES: No retroperitoneal lymphadenopathy is seen. There is mild esther changes in the mesentery of questionable significance. VASCULAR: Unremarkable. PELVIC VISCERA: There is marked BPH. Seminal vesicles appear normal. OSSEOUS STRUCTURES: Degenerative changes are noted in the lumbar spine most marked at L2-L3. There is posterior fixation with pedicular screws along with interbody devices at L3-L4 and L4-L5. CT/CT abdomen pelvis wo IV con IMPRESSION: 1. Bilateral nonobstructing intrarenal calculi. 2. There is mild left-sided hydronephrosis with a 8.4 x 5.5 mm stone in the very proximal left ureter. 3. Incidental note made of bronchial thickening and mild cylindrical bronchiectasis at the lung bases, splenomegaly, marked BPH and degenerative changes in the spine with postoperative changes. Independent Historian Clinical information obtained from an independent historian. History obtained from or confirmed by: Other ( patient's son) Medications Administered Discontinued Medications Generic Name Dose Route Start Last Admin Trade Name Freq PRN Reason Stop Dose Admin Hydromorphone HCl 1 mg 01/02/24 23:47 01/03/24 00:21 Hydromorphone Hcl 1 Mg/Ml Syringe IVPUSH 01/02/24 23:48 1 mg ONCE ONE Administration Protocol Sodium Chloride 1,000 mls @ 999 mls/hr 01/02/24 23:27 01/03/24 01:23 Ns IVCONT 01/03/24 00:27 Infused .Q1H1M ONE Infusion Ketorolac Tromethamine 30 mg 01/02/24 23:27 01/02/24 23:32 Ketorolac Tromethamine 30 Mg/Ml Vial IVPUSH 01/02/24 23:28 30 mg ONCE ONE Administration Ondansetron HCl 4 mg 01/02/24 23:27 01/02/24 23:32 Ondansetron Hcl 4 Mg/2 Ml Vial IVPUSH 01/02/24 23:28 4 mg ONCE ONE Administration Critical Care Time Critical Care Time Critical Care Time: Yes Total Critical Care Time: 60 Attestation: I have personally provided critical care time. Time includes review of lab data, radiology results, discussion with consultants, and monitoring for potential decompensation. Intervention performed as documented. Discharge Plan Discharge Clinical Impression: Ureterolithiasis Patient Disposition: Home, Self-Care Instructions: Kidney Stones (ED) Additional Instructions: Please follow-up with your primary care physician tomorrow. If you have any worsening or new symptoms, please return to the emergency room or call 911 Prescriptions: New ketorolac 10 mg tablet 10 mg PO Q8H PRN (Reason: pain) Qty: 14 0RF Rx Instructions: do not take this medication with ibuprofen Or NSAIDs hydromorphone [Dilaudid] 2 mg tablet 2 mg PO . b.i.d. Qty: 6 0RF Rx Instructions: Partial Fill upon patient request. No Action multivitamin Tablet 1 tab PO DAILY ibuprofen 600 mg tablet 600 mg PO Q6H PRN (Reason: pain) Qty: 30 0RF pantoprazole [Protonix] 40 mg tablet,delayed release (DR/EC) 40 mg PO DAILY Qty: 30 0RF sucralfate 1 gram tablet 1 g PO BID Qty: 60 0RF amlodipine 10 mg tablet 10 mg PO DAILY oxycodone 10 mg tablet 10 mg PO Q6H potassium citrate 10 mEq (1,080 mg) tablet extended release 10 meq PO DAILY albuterol sulfate 90 mcg/actuation HFA aerosol inhaler 2 puff inhalation QID fluticasone propionate 50 mcg/actuation spray,suspension 1 spray intranasal DAILY tizanidine 4 mg tablet 4 mg PO Q8H PRN (Reason: Muscle Spasm) Metamucil 3.4 gram/5.4 gram powder 1 tsp PO BID Qty: 660 0RF Rx Instructions: mix into at least 4 oz water or juice before administering Print Language: Peruvian
[2024-01-03 00:03] LABS: Alanine Aminotransferase 25 U/L (0-40); Albumin Level 4.6 g/dL (3.5-5.0); Alkaline Phosphatase 98 U/L (39-117); Anion Gap 17 (12-20); Aspartate Amino Transferase 29 U/L (5-37); Bilirubin Total 0.6 mg/dL (0.0-1.0); Blood Urea Nitrogen 11 mg/dL (9-16); Calcium 10.2 mg/dL (8.4-10.2); Carbon Dioxide 23 mmol/L (22-29); Chloride 104 mmol/L (96-108); Creatinine Clr Calc Pharmacy 86.6; Estimated Glomerular Filt Rate > 60; Glucose Random 134 mg/dL (60-115); Sodium 140 mmol/L (135-145); Total Protein 7.8 g/dL (6.5-8.0)
[2024-01-03] MEDS: HYDROmorphone HCl 1 MG/ML SYRINGE IVPUSH (00:21)
--- NOTE | 2024-01-03 00:26 | PC.NURSE ---
pt states he is feeling much better, pt is not moaning and groaning
[2024-01-03 02:25] VITALS: BP 145/79; PULSE 77; RESP 18; TEMP 36.5; O2SAT 98
[2024-01-03 02:39] LABS: Appearance Urine Clear; Color Urine Yellow; Glucose Urine UA Negative (Negative); Leukocyte Esterase Urine Negative (Negative); Nitrite Urine Negative (Negative); PH 7.5 (5.0-9.0); UMIC TRIGGER UACC YES; Urine Blood Small (1+) (Negative); Urine Ketones Negative (Negative); Urine Protein Negative (Neg-Trace)
[2024-01-03 02:41] LABS: Bacteria Urine None Seen (None Seen); Hyaline Casts Urine 0-2 /LPF (0-2); Squamous Epithelial Cell Urine 0-2 /HPF (0-2); WBC Urine 0-5 /HPF (0-5)
[2024-01-03 02:59] VITALS: BP 145/79; PULSE 77; RESP 8; TEMP 36.5; O2SAT 98
== END 2024-01-03 03:01 | disposition home or self-care (01) ==
PROVIDERS: Emergency Provider Emergency Medicine; PCP Physician Assistant
DX: N20.1 Calculus of ureter (principal); R11.2 Nausea with vomiting, unspecified; R50.9 Fever, unspecified; R10.2 Pelvic and perineal pain; Z79.899 Other long term (current) drug therapy
CPT/HCPCS: 36415; 74176; 80053; 81001; 85025; 96361; 96374; 96375; 99284; 99285; J1171; J1885; J2405

== ENCOUNTER 2024-01-03 19:07 | Emergency (ER) | payer OTHER, SELFPAY ==
--- NOTE | ~2024-01-03 | CT_ITS ---
EXAMINATION: CT ABDOMEN AND PELVIS WITHOUT CONTRAST CLINICAL INFORMATION: Worsening kidney stones. Hydronephrosis. COMPARISON: CT abdomen and pelvis 01/02/2024. TECHNIQUE: Multidetector volumetric imaging was performed from the superior aspect of the liver through the pubic symphysis. Sagittal and coronal reformatted images were obtained on the technologist's workstation. This CT examination was performed using dose optimization techniques as appropriate, variously including the following: *Automated exposure control *Adjustment of mA and/or kV according to patient size (this includes techniques or standardized protocols for targeted exams where dose is matched to indication/reason for exam; i.e. extremities or head) *Use of iterative reconstruction technique DLP: 637 mGy-cm FINDINGS: LUNG BASES: The visualized lung bases are unremarkable. LIVER, GALLBLADDER, AND BILIARY TREE: The liver is normal in size, shape, and attenuation. No focal hepatic lesion or biliary ductal dilatation is present. The gallbladder is unremarkable with no evidence of radiopaque gallstones, gallbladder wall thickening, or obvious pericholecystic inflammatory changes. PANCREAS: Unremarkable. SPLEEN: Unremarkable. ADRENAL GLANDS: Unremarkable. KIDNEYS AND URETERS: A 5.0 mm no perinephric fluid collections identified. Five additional punctate calculi, the largest measuring 3 mm diameter are present in the left renal pelvis. Within the right kidney, 3 punctate calculi, largest measuring 3 mm in diameter are present. BLADDER: Decompressed GASTROINTESTINAL TRACT: Mild sigmoid diverticulosis. Appendix is not visualized. No free intraperitoneal fluid or gas collections. Minimal nonspecific reticulation of the mesenteric fat at the root of the small bowel mesentery. Similar findings are sometimes in asymptomatic, chronic finding and not necessary correlate with acute abnormality. ABDOMINAL WALL: No intestinal hernias. Ventral midline incisional scar. LYMPH NODES: Normal. VASCULAR: Mild scattered calcific atherosclerosis PELVIC VISCERA: The prostate is enlarged measuring 5 cm in AP dimension. OSSEOUS STRUCTURES: No suspicious skeletal abnormalities. Status post posterior and interbody fusion L4-L5. CT/CT abdomen pelvis wo IV con IMPRESSION: *Single 5 mm rounded obstructing calculus at the left ureteropelvic junction associated with mild left hydronephrosis and mild left perinephric inflammatory changes. Findings are similar to findings present 01/02/2024. *Bilateral punctate nonobstructing renal calculi as detailed above. *Diffuse static enlargement. The prostate measures 5 cm in AP dimension. *Status post L4-L5 anterior and posterior instrument fusion. Electronically signed by: Vinicio Long MD 01/04/2024 12:21 AM [facility]
[2024-01-03 19:32] VITALS: BP 148/88; PULSE 74; RESP 18; TEMP 37; O2SAT 98; BMI 31.6
[2024-01-03] MEDS: Ondansetron ODT 4 MG TAB.RAPDIS TRANSLINGU (19:38)
--- NOTE | 2024-01-03 19:40 | ED_ITS ---
HPI - General Adult General Chief complaint: Abdominal Pain Stated complaint: left lower back pain,kidney stones here yesterday Time Seen by Provider: 01/03/24 22:23 Source: patient Mode of arrival: ambulatory Limitations: no limitations History of Present Illness ED Provider: deni CR narrative: Patient's history of kidney stone was seen here yesterday for left flank pain for last 2 days noted to have 8.4 x 5.5 mm left proximal ureteric stone with hydronephrosis patient did not want to stay in the hospital went to see his urologist who could not take him to the OR for lithotripsy comes back here as continued to have pain with nausea and vomiting Related Data Home Medications ?Medication ?Instructions ?Recorded ?Confirmed albuterol sulfate 90 mcg/actuation 2 puff inhalation QID 08/22/20 04/17/21 aerosol inhaler amlodipine 10 mg tablet 10 mg PO DAILY 08/22/20 04/17/21 fluticasone propionate 50 1 spray intranasal DAILY 08/22/20 04/17/21 mcg/actuation nasal spray,suspension oxycodone 10 mg tablet 10 mg PO Q6H 08/22/20 04/17/21 potassium citrate 10 mEq (1,080 10 meq PO DAILY 08/22/20 04/17/21 mg) tablet,extended release tizanidine 4 mg tablet 4 mg PO Q8H PRN Muscle Spasm 08/22/20 04/17/21 multivitamin 1 tab PO DAILY 09/13/20 04/17/21 Previous Rx's ?Medication ?Instructions ?Recorded ibuprofen 600 mg tablet 600 mg PO Q6H PRN pain #30 tabs 09/20/20 psyllium husk 3.4 gram/5.4 gram 1 tsp PO BID #660 grams 10/03/20 oral powder (Metamucil) pantoprazole 40 mg tablet,delayed 40 mg PO DAILY #30 tabs 01/23/22 release (Protonix) sucralfate 1 gram tablet 1 g PO BID #60 tabs 01/23/22 hydromorphone 2 mg tablet 2 mg PO . b.i.d. #6 tabs 01/03/24 (Dilaudid) ketorolac 10 mg tablet 10 mg PO Q8H PRN pain #14 tabs 01/03/24 ondansetron HCl 4 mg tablet 4 mg PO Q8H PRN nausea and 11/18/24 vomiting #10 tabs tamsulosin 0.4 mg capsule (Flomax) 0.4 mg PO BEDTIME #20 caps 01/03/24 Allergies Allergy/AdvReac Type Severity Reaction Status Date / Time morphine [MORPHINE] Allergy Intermediate hives/diaph Verified 01/03/24 19:36 oresis Review of Systems 2 Review of Systems: Yes all other systems are reviewed and are negative [facility] Past Medical History Medical History Back pain Hx of fracture of skull Peptic ulcer Sleep apnea History of COVID-19 COVID-19 vaccine series completed Anal fistula Asthma Hypertension Surgical History Hx of decompression of ulnar nerve Hx of nasal septoplasty Hx of carpal tunnel repair History of lumbar fusion Hx of cervical discectomy H/O colonoscopy History of knee surgery History of carpal tunnel surgery History of back surgery Family History Family History Mother Colon cancer Father Pancreatic cancer Brother Brain tumor Social History Social History Do you presently have visiting nurse or other home services: No Alcohol intake: former Patient Tobacco Use Status: Never used Tobacco Smoked in Last 30 Days: No Use of substances other than those prescribed or required for medical reasons: No Advance Directives: No Advance Directives Information Provided: Yes Physical Exam ED Vital Signs: Vital Signs - 24 hr 01/03/24 19:32 01/03/24 22:41 01/03/24 23:26 Temperature 98.6 F 98.4 F Pulse Rate 74 69 Respiratory Rate 18 20 17 Blood Pressure 148/88 H 163/89 H Pulse Oximetry 98 98 Oxygen Delivery Method Room Air Room Air 01/04/24 02:11 01/04/24 02:12 Temperature 98.3 F 98.3 F Pulse Rate 62 62 Respiratory Rate 16 16 Blood Pressure 133/88 133/88 Pulse Oximetry 95 95 Oxygen Delivery Method Room Air Room Air BMI result Body Mass Index 31.6 Appearance: Alert. Oriented X3. Moderate distress Eyes: No pallor or icterus ENT: Pharynx normal. Oral Mucosa moist Neck: Normal inspection. Neck supple. CVS: Normal heart rate and rhythm. Pulses normal. Respiratory: No respiratory distress. Equal air entry bilateral, no wheezing/rales/rhonchi Abdomen: Soft and nontender. Bowel sounds are present, no mass palpable, L CVA tenderness++ Skin: Skin warm and dry. Normal skin color. Normal skin turgor. Extremities: No lower extremity edema. No calf tenderness Neuro: Oriented X 3. No motor deficit. Course Course Course Narrative: RME: 63-year-old male presents to the ED for worsening kidney stones pain. Patient was seen here yesterday for left flank pain diagnosed with a 8 mm kidney stone in the ureter. Patient states not able to get Dilaudid prescription can pharmacy did not carry prescriptions. Repeat labs ordered. Medications Administered Discontinued Medications Generic Name Dose Route Start Last Admin Trade Name Freq PRN Reason Stop Dose Admin Hydromorphone HCl 2 mg 01/03/24 22:26 01/03/24 23:26 Hydromorphone Hcl 2 Mg/Ml Vial IVPUSH 01/03/24 22:27 2 mg ONCE ONE Administration Protocol Hydromorphone HCl 2 mg 01/04/24 01:31 01/04/24 01:52 Hydromorphone Hcl 2 Mg Tablet PO 01/04/24 01:32 2 mg ONCE ONE Administration Sodium Chloride 1,000 mls @ 999 mls/hr 01/03/24 22:26 01/04/24 00:15 Ns IV 01/03/24 23:26 Infused .Q1H1M ONE Infusion Ketorolac Tromethamine 30 mg 01/03/24 22:26 01/03/24 23:26 Ketorolac Tromethamine 30 Mg/Ml Vial IVPUSH 01/03/24 22:27 30 mg ONCE ONE Administration Ondansetron HCl 4 mg 01/03/24 19:36 01/03/24 19:38 Ondansetron Odt 4 Mg Tab.Rapdis TRANSLINGU 01/03/24 19:37 4 mg ONCE ONE Administration Ondansetron HCl 4 mg 01/03/24 22:27 01/03/24 23:26 Ondansetron Hcl 4 Mg/2 Ml Vial IVPUSH 01/03/24 22:28 4 mg ONCE ONE Administration Medical Decision Making Medical Decision Making [facility] Narrative: Patient with 8 mm left ureteric proximal stone will be seeing his urologist at 08:00 feeling much better after pain medication in the ER Lab Data MDM Lab Attestation statement: I reviewed the patient's lab results. 01/03/24 19:48 01/03/24 19:48 Labs: Lab Results 01/03/24 Range/Units 19:48 WBC 7.6 (4.8-10.8) X10*3/uL RBC 4.85 (4.60-5.80) X10*6/uL Hgb 14.2 (14.0-18.0) g/dl Hct 41.0 L (42.0-52.0) % MCV 84.5 (80.0-98.0) fL MCH 29.3 (27.0-33.0) pg MCHC 34.6 (31.0-36.0) g/dl RDW 13.2 (11.0-16.0) % Plt Count 195 (160-400) X10*3/uL MPV 8.9 L (9.4-12.4) fL Immature Gran % (Auto) 0.4 (0.0-0.4) % Neut % (Auto) 78.4 H (45-73) % Lymph % (Auto) 12.7 L (20-40) % Sharp % (Auto) 6.5 (2-11) % Eos % (Auto) 1.6 (0-4) % Baso % (Auto) 0.4 (0-2) % Lymph # (Auto) 1.0 L (1.2-4.9) X10*3/uL Sharp # (Auto) 0.5 (0.1-1.2) X10*3/uL Eos # (Auto) 0.1 (0.0-0.4) X10*3/uL Baso # (Auto) 0.0 (0.0-0.2) X10*3/uL Abs Immat Gran (auto) 0.03 (0.00-0.03) X10*3/uL Absolute Neuts (auto) 6.0 (2.0-8.3) x10*3/uL Absolute Nucleated RBC 0.000 (0.0-0.012) X10*3/uL Nucleated RBC % (auto) 0.0 (0.0-0.2) /100WBC Sodium 140 (135-145) mmol/L Potassium 3.5 (3.3-5.1) mmol/L Chloride 105 (96-108) mmol/L Carbon Dioxide 26 (22-29) mmol/L Anion Gap 13 (12-20) BUN 13 (9-16) mg/dL Creatinine 1.20 (0.5-1.4) mg/dL Estim Creat Clear Calc 73.7 Estimated GFR > 60 Random Glucose 118 H (60-115) mg/dL Calcium 9.2 D (8.4-10.2) mg/dL Total Bilirubin 0.8 (0.0-1.0) mg/dL AST 27 (5-37) U/L ALT 25 (0-40) U/L Alkaline Phosphatase 83 (39-117) U/L Total Protein 7.1 (6.5-8.0) g/dL Albumin 4.3 (3.5-5.0) g/dL Discharge Plan Discharge Clinical Impression: Calculus of kidney Patient Disposition: Home, Self-Care Instructions: Kidney Stones (ED) Additional Instructions: Drink plenty of fluid Continue Flomax and oxycodone Follow with urologist in a.m. Prescriptions: No Action multivitamin Tablet 1 tab PO DAILY ibuprofen 600 mg tablet 600 mg PO Q6H PRN (Reason: pain) Qty: 30 0RF pantoprazole [Protonix] 40 mg tablet,delayed release (DR/EC) 40 mg PO DAILY Qty: 30 0RF sucralfate 1 gram tablet 1 g PO BID Qty: 60 0RF ketorolac 10 mg tablet 10 mg PO Q8H PRN (Reason: pain) Qty: 14 0RF Rx Instructions: do not take this medication with ibuprofen Or NSAIDs hydromorphone [Dilaudid] 2 mg tablet 2 mg PO . b.i.d. Qty: 6 0RF Rx Instructions: Partial Fill upon patient request. tamsulosin [Flomax] 0.4 mg capsule 0.4 mg PO BEDTIME Qty: 20 0RF ondansetron HCl 4 mg tablet 4 mg PO Q8H PRN (Reason: nausea and vomiting) Qty: 10 0RF amlodipine 10 mg tablet 10 mg PO DAILY oxycodone 10 mg tablet 10 mg PO Q6H potassium citrate 10 mEq (1,080 mg) tablet extended release 10 meq PO DAILY albuterol sulfate 90 mcg/actuation HFA aerosol inhaler 2 puff inhalation QID fluticasone propionate 50 mcg/actuation spray,suspension 1 spray intranasal DAILY tizanidine 4 mg tablet 4 mg PO Q8H PRN (Reason: Muscle Spasm) Metamucil 3.4 gram/5.4 gram powder 1 tsp PO BID Qty: 660 0RF Rx Instructions: mix into at least 4 oz water or juice before administering Interventions: ED Discharge Assessment Last Done: 01/04/24 02:12 Discharge Date/Time: 01/04/24 02:13 Print Language: Thai
[2024-01-03 19:53] LABS: MANUAL DIFF FLAG NO
[2024-01-03 19:55] LABS: Basophils Percent Auto 0.4 % (0-2); Eosinophils Absolute Auto 0.1 X10*3/uL (0.0-0.4); Eosinophils Percent Auto 1.6 % (0-4); Hemoglobin 14.2 g/dl (14.0-18.0); Imm Gran Abs Auto 0.03 X10*3/uL (0.00-0.03); Imm Gran Pct Auto 0.4 % (0.0-0.4); Lymphocytes Percent Auto 12.7 % (20-40); Mean Corpuscular HGB Conc 34.6 g/dl (31.0-36.0); Mean Corpuscular Hemoglobin 29.3 pg (27.0-33.0); Mean Corpuscular Volume 84.5 fL (80.0-98.0); Mean Platelet Volume 8.9 fL (9.4-12.4); Monocytes Absolute Auto 0.5 X10*3/uL (0.1-1.2); Monocytes Percent Auto 6.5 % (2-11); Neutrophils Percent Auto 78.4 % (45-73); Platelet Count 195 X10*3/uL (160-400); Red Blood Count 4.85 X10*6/uL (4.60-5.80); Red Cell Distribution Width 13.2 % (11.0-16.0); White Blood Count 7.6 X10*3/uL (4.8-10.8)
[2024-01-03 20:09] LABS: Alanine Aminotransferase 25 U/L (0-40); Albumin Level 4.3 g/dL (3.5-5.0); Alkaline Phosphatase 83 U/L (39-117); Anion Gap 13 (12-20); Aspartate Amino Transferase 27 U/L (5-37); Bilirubin Total 0.8 mg/dL (0.0-1.0); Blood Urea Nitrogen 13 mg/dL (9-16); Calcium 9.2 mg/dL (8.4-10.2); Carbon Dioxide 26 mmol/L (22-29); Chloride 105 mmol/L (96-108); Creatinine Clr Calc Pharmacy 73.7; Estimated Glomerular Filt Rate > 60; Glucose Random 118 mg/dL (60-115); Potassium 3.5 mmol/L (3.3-5.1); Sodium 140 mmol/L (135-145); Total Protein 7.1 g/dL (6.5-8.0)
[2024-01-03 22:41] VITALS: BP 163/89; PULSE 69; RESP 20; TEMP 36.9; O2SAT 98
[2024-01-03] MEDS: 0.9 % Sodium Chloride 1,000 ML 999 ML IV (23:04)
[2024-01-03 23:26] VITALS: RESP 17
[2024-01-03] MEDS: Ketorolac Tromethamine 30 MG/ML VIAL IVPUSH (23:26)
[2024-01-03] MEDS: HYDROmorphone HCl 2 MG/ML VIAL IVPUSH (23:26)
[2024-01-03] MEDS: ondansetron HCL 4 MG/2 ML VIAL IVPUSH (23:26)
--- NOTE | 2024-01-03 23:30 | PC.NURSE ---
this rn assumed care of pt, pt a&ox4, respirations even and unlabored. pt medicated per apr for 8/10 left flank pain, pt tolerating well. pt given blanket at this time.
[2024-01-04] MEDS: HYDROmorphone HCl 2 MG TABLET PO (01:52)
[2024-01-04 02:11] VITALS: BP 133/88; PULSE 62; RESP 16; TEMP 36.8; O2SAT 95
[2024-01-04 02:12] VITALS: BP 133/88; PULSE 62; RESP 16; TEMP 36.8; O2SAT 95
== END 2024-01-04 02:13 | disposition home or self-care (01) ==
PROVIDERS: Physician Assistant; Emergency Provider Internal Medicine; PCP Physician Assistant
DX: N13.2 Hydronephrosis with renal and ureteral calculous obstruction (principal)
CPT/HCPCS: 36415; 74176; 80053; 85025; 96361; 96374; 96375; 96376; 99284; 99285; J1171; J1885; J2405

== ENCOUNTER 2024-10-02 09:26 | Outpatient (AMB) | payer OTHER, SELFPAY ==
--- OUTSIDE RECORDS SUMMARY | 2024-10-02 09:56 | XMS_ITS | Clinical Summary ---
Author Organization [address] Address [address] [place] [id number] Phone Care Team Providers Care Assistant Store Leader Name Role Phone Nini Welsh Primary Care Provider [phone] Allergies Active Allergy Reactions Criticality Noted Date Comments Seasonal Allergies Unknown 06/02/2024 Medications amLODIPine (NORVASC) 10 mg tablet Take 1 tablet (10 mg total) by mouth daily. Active naloxone (NARCAN) 4 mg/actuation nasal spray Use 1 spray in one nostril Once as needed, may repeat 1 extra dose for opioid reversal. Use 1 spray in 1 nostril for suspected opioid overdose. May repeat in 2 minutes in other nostril with new device if minimal or no response. Active oxyCODONE (ROXICODONE) 10 mg Immediate Release tablet Take 1 tablet (10 mg total) by mouth every 6 (six) hours as needed for pain. Active pantoprazole (PROTONIX) 40 mg tablet Take 1 tablet (40 mg total) by mouth daily. Active potassium citrate (UROCIT-K) 10 mEq (1,080 mg) extended release tablet Take 1 tablet (10 mEq total) by mouth daily. Active tiZANidine (ZANAFLEX) 4 mg tablet Take 1 tablet (4 mg total) by mouth every 8 (eight) hours as needed for muscle spasms. Active Active Problems Problem Noted Date Diagnosed Date Cholecystitis 06/02/2024 Social History Tobacco Use Types Packs/Day Years Used Date Smoking Tobacco: Never Assessed [facility] Utilities Answer Date Recorded In the past 12 months has [employer] gas, oil, or water [place] threatened to shut off services in your home? No 06/02/2024 PHQ-2 Answer Date Recorded PHQ-2 Total Score 0 06/02/2024 Hunger Vital Sign Answer Date Recorded Within the past 12 months, y ou worried that your food would run out before you got the money to buy more. Never true 06/03/19 25 Within the past 12 months, t he food you bought just didn't last and you didn't have money to get more. Never true 06/02/2024 PRAPARE - Transportation Answer Date Re corded In the past 12 months, has l ack of transportation kept you from medical appointments or from getting medications? No 05/16 In the past 12 months, has l ack of transportation kept you from meetings, work, or from getting things needed for daily living? No 06/02/2024 Housing Stability Answer Date Recorded What is your living situation today? I have a [facility] place to live 06/02/2024 Housing Stability Not on file 06/02/2024 Interpersonal Safety Answer Date Record ed Is there anyone in your life that is hurting or threatening you in anyway? no 06/02/2024 Physical Indicators of Abuse No evidence of phys ical abuse 06/02/2024 Sex and Gender Information Value Date Recorded Sex Assigned at Not on file Legal Sex Male 7:31 AM EDT Gender Identity Male 06/02/2024 7:52 AM EDT Sexual Orientation Not on file Last Filed Vital Signs Vital Sign Reading Time Taken Comments Blood Pressure 129/78 06/08/2024 8:00 AM EDT Pulse 68 06/08/2024 8:00 AM EDT Temperature 36.4 C (97.5 F) 06/08/2024 4:21 AM EDT Respiratory Rate 18 06/08/2024 8:00 AM EDT Oxygen Saturation 97% 06/08/2024 8:00 AM EDT Inhaled Oxygen Concentration - - Weight 97.5 kg (215 lb) 06/07/2024 1:05 PM EDT Height 180.3 cm (5' 11 ) 06/07/2024 1:05 PM EDT Body Mass Index 29.99 06/07/2024 1:05 PM EDT Plan of Treatment Health Maintenance Due Date Last Done Comments HIV screening 06/03/1972 Lipid disorder screening 1999 Colon cancer screening, Colonoscopy 06/03/2004 Pneumococcal Vaccine (50+ years) (1 of 1 - PCV) 06/03/2009 Shingles vaccine (Shingrix) (1 of 2 - Shingrix (RZV) 2 Dose Standard Series) 06/03/2009 Covid-19 vaccine series (5 - season) 2023 06/22/2021, 12/26/2020, 05/06/2020, Additional history exists Influenza vaccine 10/16/2024 02/11/2024, , 01/13/2021, Additional history exists Diabetes screening 06/09/2027 06/08/2024, 0 06/07/2024, 06/06/2024, Additional history exists Tetanus adult (Td q 10,TDAP once) 08/09/2033 08/10/2023, 09/05/2012, 02/22/2006 RSV Immunization (1 - 1-dose 75+ series) 06/03/2034 Hepatitis C screening Completed 2024 Meningococcal Vaccine Aged Out No salvador mary eligible based on patient's age to complete this topic Procedures Procedure Name Priority Date/Time Associated Diagnosis Comments COMPREHENSIVE METABOLIC PANEL Early AM 06/08/2024 5:40 AM EDT HEPATITIS C AB WITH REFLEX TO HCV PCR Early AM 2024 5:07 AM EDT from Last 3 Months or Most Recently Relevant to Health Maintenance Results * (ABNORMAL) Comprehensive metabolic panel (06/08/2024 5:40 AM EDT) Sodium 138 136 - 145 mmol/L 06/08/2024 7:05 AM [facility] Potassium 4.1 3.5 - 5.1 mmol/L 06/08/2024 7:05 AM [facility] Chloride 101 98 - 107 mmol/L 06/08/2024 7:05 AM [facility] CO2 29 21 - 32 mmol/L 06/08/2024 7:05 AM [facility] Anion Gap 8 5 - 15 mmol/L 06/08/2024 7:05 AM [facility] Glucose 129(H) 65 - 110 mg/dL 06/08/2024 7:05 AM [facility] Comment: Non-fastin-110 mg/dL Fasting (minimum 6 hrs): 65-99 mg/dL BUN 11 7 - 18 mg/dL 06/08/2024 7:05 AM [facility] Creatinine 0.76 0.70 - 1.30 mg/dL 06/08/2024 7:05 AM [facility] Calcium 9.2 8.5 - 10.1 mg/dL 06/08/2024 7:05 AM [facility] Total Protein 7.0 6.4 - 8.2 g/dL 06/08/2024 7:05 AM [facility] Albumin 3.3(L) 3.4 - 5.0 g/dL 06/08/2024 7:05 AM [facility] Globulin 3.7 2.5 - 5.0 g/dL 06/08/2024 7:05 AM [facility] Total Bilirubin 1.9(H) 0.2 - 1.0 mg/dL 06/08/2024 7:05 AM [facility] Comment:Use of this assay is not recommended for patients undergoing treatment with Eltrombopag due to the potential for falsely elevated results. Alkaline Phosphatase 265(H) 45 - 117 U/L 06/08/2024 7:05 AM [facility] Alanine Aminotransferase (ALT) 161(H) 12 - 78 U/L 06/08/2024 7:05 AM [facility] Aspartate Aminotransferase (AST) 62(H) 15 - 37 U/L 06/08/2024 7:05 AM [facility] eGFR (Creatinine) >60 >=60 mL/min/1.73 m2 06/08/2024 7:05 AM [facility] Comment: [facility] utilizes CKD-EPI Creatinine 2020 to report eGFR. Values < 60 mL/min/1.73 m2 may indicate CKD if present for more than three months AND creatinine is at steady state. The eGFR provides a rough estimate of kidney function. For further guidance, please refer to the CKD: Adult [employer] Signature pathway. Creatinine Delta 0.01 See Comment 025 7:05 AM [facility] Comment: Delta creatinine is the difference between the current creatinine and the most recent prior creatinine (if available within the previous 12 months). It is intended to detect significant changes in kidney function for patients whose creatinine is <5 mg/dL. A delta is not calculated for patients whose baseline creatinine is >=5 mg/dL or those who do not have a baseline within the last year. The following deltas will flag as critical (triggering a call from the laboratory): a) Deltas >= +1.5 mg/dL for patients with baseline creatinine <= 1.5 mg/dL. b) Deltas >= +3 mg/dL for patients with baseline creatinine between 1.5 and 5 mg/dL. Blood Venipuncture / Unknown 06/08/2024 5:40 AM EDT 06/08/2024 6:11 AM EDT Ruth Ann Morejon DO LAB BLOOD ORDERABLES Final Result Performing Organization Address [facility]/ZIP Co de Phone Number [address] [phone] * Hepatitis C Ab with reflex to HCV PCR (2024 5:07 AM EDT) [facility] Signature Hepatitis C Antibody Negative Negative 06/05/2024 8:32 AM EDT [facility] Blood Venipuncture / Unknown 2024 5:07 AM EDT 2024 6:18 AM EDT Chaim Rosales MD LAB BLOOD ORDERABLES Final Resul t [facility] [address] [place] [address] from Last 3 Months or Most Recently Relevant to Health Maintenance Insurance MEDICARE MANAGED [facility] MEDICARE MANAGED [facility] [place] [id number] MEDICARE MANAGED [facility] [place] [id number] Advance Directives * Full Code (Latest Code Status on File) Date Activated Date Inactivated Comments 06/02/2024 12:47 PM 06/08/2024 4:56 PM Question Answer Comments With Whom was the Code Status Discussed? Patient Care Teams Assistant Store Leader Relationship Specialty Start Date End Date Nini Welsh PA [address] [place] [id number] PCP - General Physician Hvac Technician Residential 06/02/24
--- OUTSIDE RECORDS SUMMARY | 2024-10-02 09:56 | XMS_ITS | Patient Health Record ---
Author Organization [facility] Address [address] [place] [address] Care Team Providers Care Rotary Cutter Name Role Phone Claudia (RETIRED) Omer GREWAL Primary Care Prov ider Unavailable Castro Lopez Unavailable [phone] Reason For Referral No Information Medications Medication SIG (Take, Route, Frequency, Duration) Notes Start Date End Date Status Multi Adult Gummies - as directed Orally Active Metaxalone 800 MG TAKE 1 TABLET BY MOUTH 3 TIMES A DAY Oral for 14 Not-Taking Vitamin C 500 MG 1 tablet Orally Once a day for 30 day(s) Active Proctosol HC 2.5 % 1 application to affected area Rectal Twice a day for 30 day(s) 04/12/2014 Not-Taking Anusol-HC 2.5 % 1 application to affected area Rectal Twice a day for 30 day(s) 04/11/2014 Not-Taking oxyCODONE HCl 10 MG TAKE 1 TABLET BY MOUTH EVERY 6 HOURS Oral for 28 4 times a day for back pain Active Loratadine 10 MG TAKE 1 TABLET BY MOUTH EVERY DAY Oral for 30 Active amLODIPine Besy-Benazepril HCl 10-20 MG TAKE 1 CAPSULE BY MOUTH DAILY Oral for 30 Active Immunizations Vaccine Route Administration Date Status Comme nts Influenza Unknown 11/15/2018 Administered Social History Alcohol Screen Question Answer Notes Did you have a drink containing alcohol in the p ast year? No Points 0 Interpretation Negative Section Notes: Nonsmoker; no alcohol Problems Problem Type SNOMED Code ICD Code Onset Dates Problem Status W/U Status Risk Notes Problem 879433607 Encounter for screening for malignant neoplasm of colon (Z12.11) Active confirmed Problem 506589397 History of adenomatous polyp of colon (Z86.010) Active confirmed Problem 996362462107254 Preprocedural examination (Z01.818) Active confirmed Plan Of Treatment Future Test Test Name Order Date COLONOSCOPY 04/11/2014 COLONOSCOPY 08/01/2019 Insurance Providers Payer Name Payer Address Payer Phone Subscriber Number Group Number Insured Name Patient Relationship to Insured Coverage Start Date Coverage End Date [facility] [address] [place] [phone] [id number] JUDY HEWITT Self - patient is the insured Medical (General) History Medical History History ICD Code 01/03/2007 Colonoscopy--1 sm all tubular adenoma, sigmoid diverticulosis, internal hemorrhoids Chronic back pain Kidney [id number] Skull fracture Hypertension HTN Denies MS,DM,CVA,Lung disease,renal dise ase Sleep apnea on CPAP machine Hx of bronchitis in the winter Neg. screening colonoscopy in 07/2014 Surgical History Surgery Date(Month/Year) Spinal fusion C-spine fusion Carpal tunnel release Fractured skull Ulnar nerve entrapment Knee surgery
--- OUTSIDE RECORDS SUMMARY | 2024-10-02 09:56 | XMS_ITS | Clinical Summary ---
Author Organization [facility] Location Address [address] [place] [address] Phone Care Team Providers Care Welding Machine Operator Resistance Name Role Phone Nini Welsh Primary Care Provider [phone] Encounters Date Type Department Care Team Description 08/24/2024 Lab Requisition [facility] - Main Lab [address] [facility] [place] [address] Roge Werner PA Calculus of kidney from Last 3 Months Social History Tobacco Use Types Packs/Day Years Used Date Smoking Tobacco: Never Assessed Sex and Gender Information Value Date Recorded Sex Assigned at Not on file Legal Sex Male 4:00 PM EST Gender Identity Not on file Sexual Orientation Not on file Plan of Treatment Health Maintenance Due Date Last Done Comments Pneumococcal Vaccine: 50+ Years (1 of 1 - PCV) 06/03/2009 Zoster Vaccines (1 of 2) 06/03/2009 Abdominal Aortic Aneurysm (AAA) Screen 01/14/2022 Cholesterol Screening (Lipid Panel) 01/14/2022 Colorectal Cancer Screening: Colonoscopy 01/14/2022 Hepatitis C Screening 01/14/2022 Social Influencers of Health Screening 01/14/2022 COVID-19 Vaccine ( season) 2023 06/22/2021, 12/26/2020, 05/06/2020, Additional history exists Hypertension/CHF/CAD Annual BMP Blood Test 12/24/2023 Depression Screening 02/16/2024 Falls Risk Assessment 06/03/2024 Influenza Vaccine (#1) 2024 2, 01/13/2021, 12/04/2019, Additional history exists DTaP,Tdap,and Td Vaccines (4 - Td or Tdap) 08/09/2033 08/10/2023, 09/05/2012, 02/22/2006 RSV Immunization Adult Patients (1 - 1-dose 75+ series) 06/03/2034 HIB Vaccines Aged Out No longer eligi ble based on patient's age to complete this topic HPV Vaccines Aged Out No longer eligi ble based on patient's age to complete this topic Hepatitis A Vaccines Aged Out No long er eligible based on patient's age to complete this topic Hepatitis B Vaccines Aged Out No long er eligible based on patient's age to complete this topic IPV Vaccines Aged Out No longer eligi ble based on patient's age to complete this topic MMR Vaccines Aged Out No longer eligi ble based on patient's age to complete this topic Meningococcal ACWY Vaccine Aged Out N o longer eligible based on patient's age to complete this topic Meningococcal B Vaccine Aged Out No l onger eligible based on patient's age to complete this topic RSV Immunization Patients Under 20 months Aged Out No longer eligible based on patient's age to complete this topic Varicella Vaccines Aged Out No longer eligible based on patient's age to complete this topic Procedures Procedure Name Priority Date/Time Associated Diagnosis Comments PARATHYROID HORMONE INTACT Routine 08/24/2024 9:05 AM EDT Calculus of kidney from Last 3 Months Results * Parathyroid hormone intact (08/24/2024 9:05 AM EDT) PTH 88.0 18.5 - 88.0 pcg/mL LAB CHEMISTRY METHOD 08/24/2024 12:10 PM EDT [facility] Blood Venous blood specimen / Unknown 08/24/2024 9:05 AM EDT 08/24/2024 11:07 AM EDT us Roge WISEMAN LAB BLOOD ORDERABLES Final Res ult [facility] [address] [place] [address], [place] [phone] from Last 3 Months Insurance [facility] MEDICAID [place] [id number] Care Teams Welding Machine Operator Resistance Relationship Specialty Start Date End Date [place] [address] PCP - General Physician Manager Book 08/24/24
== END 2024-10-02 10:09 | disposition home or self-care (01) ==
LOC: HO.HMGAL 09:26
PROVIDERS: PCP Physician Assistant; Visit Provider Registered Nurse Emergency
DX: J30.89 Other allergic rhinitis (principal)
CPT/HCPCS: 95117; 95165

== ENCOUNTER 2024-10-23 09:23 | Outpatient (AMB) | payer OTHER, SELFPAY ==
--- OUTSIDE RECORDS SUMMARY | 2024-10-23 10:34 | XMS_ITS | Clinical Summary ---
Author Organization [address] Address [address] [place] [phone] Phone Care Team Providers Care Probation Agent Name Role Phone Nini Welsh Primary Care Provider [phone] Allergies Active Allergy Reactions Criticality Noted Date [...] Years Used Date Smoking Tobacco: Never Assessed [facility] Utilities Answer Date Recorded In the past 12 months has [employer], gas, oil, or water [facility] threatened to shut off services in your [...] your living situation today? I have a [facility] place to live 06/02/2024 Housing Stability Not [...] Series) 06/03/2009 Covid-19 vaccine series (5 - 2024- season) 2024 06/22/2021, 12/26/2020, 05/06/2020, Additional history exists Influenza vaccine 10/16/2024 02/11/2024, , 01/13/2021, Additional history exists Diabetes screening 06/09/2027 06/08/2024, 0 06/07/2024, 06/06/2024, Additional history exists Tetanus adult (Td q 10,TDAP once) 08/09/2033 08/10/2023, 09/05/2012, 02/22/2006 RSV Immunization (1 - 1-dose 75+ series) 06/03/2034 Hepatitis C screening Completed 2024 Meningococcal B Vaccine Aged Out No l onger eligible based on patient's age to complete this topic Meningococcal Vaccine Aged Out No salvador mary [...] 136 - 145 mmol/L 06/08/2024 7:05 AM [facility] Potassium 4.1 3.5 - 5.1 mmol/L 06/08/2024 7:05 AM [facility] Chloride 101 98 - 107 mmol/L 06/08/2024 7:05 AM EDT [facility] CO2 29 21 - 32 mmol/L 06/08/2024 7:05 AM [facility] Anion Gap 8 5 - 15 mmol/L 06/08/2024 7:05 AM [facility] Glucose 129(H) 65 - 110 mg/dL 06/08/2024 7:05 AM [facility] Comment: Non-fastin-110 mg/dL Fasting (minimum 6 hrs): 65-99 mg/dL BUN 11 7 - 18 mg/dL 06/08/2024 7:05 AM [facility] Creatinine 0.76 0.70 - 1.30 mg/dL 06/08/2024 7:05 AM [facility] Calcium 9.2 8.5 - 10.1 mg/dL 06/08/2024 7:05 AM [facility] Total Protein 7.0 6.4 - 8.2 g/dL 06/08/2024 7:05 AM [facility] Albumin 3.3(L) 3.4 - 5.0 g/dL 06/08/2024 7:05 AM [facility] Globulin 3.7 2.5 - 5.0 g/dL 06/08/2024 7:05 AM [facility] Total Bilirubin 1.9(H) 0.2 - 1.0 mg/dL 06/08/2024 7:05 AM [facility] Comment:Use of this assay is not recommended for patients undergoing treatment with Eltrombopag due to the potential for falsely elevated results. Alkaline Phosphatase 265(H) 45 - 117 U/L 06/08/2024 7:05 AM [facility] Alanine Aminotransferase (ALT) 161(H) 12 - 78 U/L 06/08/2024 7:05 AM [facility] Aspartate Aminotransferase (AST) 62(H) 15 - 37 U/L 06/08/2024 7:05 AM [facility] eGFR (Creatinine) >60 >=60 mL/min/1.73 m2 06/08/2024 7:05 AM [facility] Comment: [facility] utilizes CKD-EPI Creatinine 2020 to report eGFR. Values < 60 mL/min/1.73 m2 may indicate CKD if present for more than three months AND creatinine is at steady state. The eGFR provides a rough estimate of kidney function. For further guidance, please refer to the CKD: Adult Banana Grader Signature pathway. Creatinine Delta 0.01 See Comment 04/24/2 025 7:05 AM EDT [facility] Comment: Delta creatinine is the difference between [...] Morejon DO LAB BLOOD ORDERAB[place] [address], [facility] [phone] * Hepatitis C Ab with reflex to HCV PCR (2024 5:07 AM EDT) Hepatitis C Antibody Negative Negative 06/05/2024 8:32 AM EDT [facility] Blood Venipuncture / Unknown 2024 5:07 AM EDT 2024 6:18 AM EDT Chaim Rosales MD LAB BLOOD ORDERABLES Final Resul t [facility] [address] [place] [address] from Last 3 Months or Most Recently Relevant to Health Maintenance Insurance MEDICARE MANAGED [facility] MEDICARE MANAGED [facility] [place] [id number] MEDICARE MANAGED [facility] Advance Directives * Full Code (Latest Code Status on File) Date Activated Date Inactivated Comments 06/02/2024 12:47 PM 06/08/2024 4:56 PM Question Answer Comments With Whom was the Code Status Discussed? Patient Care Teams Probation Agent Relationship Specialty Start Date End Date Nini Welsh PA [address] [place] [address] PCP - General Physician Feather Curling Machine Operator 06/02/24
--- OUTSIDE RECORDS SUMMARY | 2024-10-23 10:34 | XMS_ITS | Encounter Summary ---
Author Organization [facility] Address [address] [place] [address] Care Team Providers Care Compliance Vice President Name Role Phone Nini Welsh Primary Care Provider [phone] Encounter Details Date Type Department Care Team (Late st Contact Info) Description 08/24/[address] [facility] - Main Lab [address] [facility] [place] [address] Roge Werner PA [address] [place] [phone] Calculus of kidney Social History Tobacco Use Types Packs/Day Years Used Date Smoking Tobacco: Never Assessed Sex and Gender Information Value Date Recorded Sex Assigned at Not on file Legal Sex Male 4:00 PM EST Gender Identity Not on file Sexual Orientation Not on file documented as of this encounter Plan of Treatment Not on file documented as of this encounter Procedures Procedure Name Priority Date/Time Associated Diagnosis Comments PARATHYROID HORMONE INTACT Routine 08/24/2024 9:05 AM EDT Calculus of kidney documented in this encounter Results * Parathyroid hormone intact (08/24/2024 9:05 AM EDT) PTH 88.0 18.5 - 88.0 pcg/mL LAB CHEMISTRY METHOD 08/24/2024 12:[address] [facility] Blood Venous blood specimen / Unknown 08/24/2024 9:05 AM EDT 08/24/2024 11:07 AM EDT us Roge WISEMAN LAB BLOOD ORDERABLES Final Res ult [facility] [address] [place] [address], documented in this encounter Visit Diagnoses Diagnosis Calculus of kidney documented in this encounter Care Teams Compliance Vice President Relationship Specialty Start Date End Date Nini Welsh PA [address] [place] [address] PCP - General Physician Tree Faller 08/24/24 documented as of this encounter
--- OUTSIDE RECORDS SUMMARY | 2024-10-23 10:34 | XMS_ITS | Clinical Summary ---
Author Organization [facility] Location Address [address] [place] [address] Phone Care Team Providers Care Librarian Name Role Phone Nini Welsh Primary Care Provider [phone] Encounters Date Type Department Care Team Description 08/24/2024 Lab Requisition [facility] - Main Lab [address] [facility] [place] [address] Roge Werner PA Calculus of [...] 01/14/2022 Social Influencers of Health Screening 01/14/2022 Hypertension/CHF/CAD Annual BMP Blood Test 12/24/2023 Depression Screening 02/16/2024 Falls Risk Assessment 06/03/2024 COVID-19 Vaccine ( season) 2024 06/22/2021, 12/26/2020, 05/06/2020, Additional history exists Influenza Vaccine (#1) 2024 2, 01/13/2021, 12/04/2019, [...] LAB CHEMISTRY METHOD 08/24/2024 12:10 PM EDT [facility] Blood Venous blood specimen / Unknown 08/24/2024 9:05 AM EDT 08/24/2024 11:07 AM EDT us Roge WISEMAN LAB BLOOD ORDERABLES Final Res ult [facility] [address] [place] [address], [place] [phone] from Last 3 Months Insurance [facility] MEDICAID [place] [id number] Care Teams Librarian Relationship Specialty Start Date End Date [place] [address] PCP - General Physician Shell Freezing Machine Operator 08/24/24
--- OUTSIDE RECORDS SUMMARY | 2024-10-23 10:34 | XMS_ITS | Patient Health Record ---
Author Organization [facility] Address [address] [place] [address] Care Team Providers Care Criminal Justice Instructor Name Role Phone Nini Tuttle Primary Care Provider U Castro White Unavailable [phone] Reason For Referral No Information Medications Medication [...] Problem Status W/U Status Risk Notes Problem [id number] Encounter for screening for malignant neoplasm of colon (Z12.11) Active confirmed Problem [id number] History of adenomatous polyp of colon (Z86.010) Active confirmed Problem [id number] Preprocedural examination (Z01.818) Active confirmed Plan Of Treatment Future Test Test Name Order Date COLONOSCOPY 04/11/2014 COLONOSCOPY 08/01/2019 Next Appt Details Provider Name:Castro Lopez , 02/20/2025 01:00:00 PM, [address], [address], [place], [address], Insurance Providers Payer Name Payer Address Payer Phone Subscriber Number Group Number Insured Name Patient Relationship to Insured Coverage Start Date Coverage End Date [facility] [address] [place] [address] [id number] JUDY HEWITT Self - patient is the insured Medical (General) History Medical History History ICD Code 01/03/2007 Colonoscopy--1 sm all tubular adenoma, sigmoid diverticulosis, internal hemorrhoids Chronic back pain Kidney [id number]-hrypwcwts Skull fracture Hypertension HTN Denies MS,DM,CVA,Lung disease,renal dise ase Sleep apnea on CPAP machine Hx of bronchitis in the winter Neg. screening colonoscopy in 07/2014 Surgical History Surgery Date(Month/Year) Spinal fusion C-spine fusion Carpal tunnel release Fractured skull Ulnar nerve entrapment Knee surgery
== END 2024-10-23 09:29 | disposition home or self-care (01) ==
LOC: HO.HMGAL 09:23
PROVIDERS: PCP Physician Assistant; Visit Provider Registered Nurse Emergency
DX: J30.89 Other allergic rhinitis (principal)
CPT/HCPCS: 95117; 95165

== ENCOUNTER 2024-11-06 09:41 | Outpatient (AMB) | payer OTHER, SELFPAY ==
--- OUTSIDE RECORDS SUMMARY | 2024-11-06 11:29 | XMS_ITS | Clinical Summary ---
Author Organization [facility] Location Address [address] [place] [address] Phone Care Team Providers Care Passementerie Worker Name Role Phone Nini Welsh Primary Care Provider Encounters Date Type Department Care Team Description 08/24/2024 Lab Requisition [facility] - Main Lab 299 [facility] [place] [address] Roge Werner PA Calculus of [...] Screening: Colonoscopy 01/14/2022 Hepatitis C Screening 01/14/2022 Medicare Annual Wellness Visit 01/14/2022 Social Influencers of Health Screening 01/14/2022 [...] LAB CHEMISTRY METHOD 08/24/2024 12:10 PM EDT [facility] Blood Venous blood specimen / Unknown 08/24/2024 9:05 AM EDT 08/24/2024 11:07 AM EDT us Rogegala WISEMAN LAB BLOOD ORDERABLES Final Res ult [facility] [address] [place] [address], [place] [phone] from Last 3 Months Insurance [facility] [facility] MEDICARE Member Subscriber Plan / Payer (Ef fective 2013-Present) Name:JUDY HEWITT Relation to Subscriber:Self Name:Judy Hewitt Payer ID:[id number] Group ID:[id number] Type:Not on file Address: [place] [address] [place] [address] Care Teams Passementerie Worker Relationship Specialty Start Date End Date Nini Welsh PA [address] [place] [address] PCP - General Physician Copper Plate Lithographer 08/24/24
--- OUTSIDE RECORDS SUMMARY | 2024-11-06 11:29 | XMS_ITS | Clinical Summary ---
Author Organization [address] Address [address] [place] [phone] Phone Care Team Providers Care Records Supervisor Name Role Phone Nini Welsh Primary Care Provider Allergies Active Allergy Reactions Criticality Noted Date [...] Years Used Date Smoking Tobacco: Never Assessed [facility] Utilities Answer Date Recorded In the past 12 months has [employer], gas, oil, or water [email or web address] threatened to shut off services in your [...] your living situation today? I [facility] a [facility] place to [facility] 06/02/2024 Housing Stability [...] Shingrix (RZV) 2 Dose Standard Series) 06/03/2009 Influenza vaccine 09/15/2024 02/11/2024, , 01/13/2021, Additional history exists Covid-19 vaccine series ( - season) 2024 06/22/2021, 12/26/2020, 05/06/2020, Additional history exists Diabetes screening 06/09/2027 06/08/2024, [...] 136 - 145 mmol/L 06/08/2024 7:05 AM [facility] Potassium 4.1 3.5 - 5.1 mmol/L 06/08/2024 7:05 AM [facility] Chloride 101 98 - 107 mmol/L 06/08/2024 7:05 AM EDT [facility] CO2 29 21 - 32 mmol/L 06/08/2024 7:05 AM [facility] Anion Gap 8 5 - 15 mmol/L 06/08/2024 7:05 AM [facility] Glucose 129(H) 65 - 110 mg/dL 06/08/2024 7:05 AM [facility] Comment: Non-fastin-110 mg/dL Fasting (minimum 6 hrs): 65-99 mg/dL BUN 11 7 - 18 mg/dL 06/08/2024 7:05 AM [facility] Creatinine 0.76 0.70 - 1.30 mg/dL 06/08/2024 7:05 AM [facility] Calcium 9.2 8.5 - 10.1 mg/dL 06/08/2024 7:05 AM [facility] Total Protein 7.0 6.4 - 8.2 g/dL 06/08/2024 7:05 AM [facility] Albumin 3.3(L) 3.4 - 5.0 g/dL 06/08/2024 7:05 AM [facility] Globulin 3.7 2.5 - 5.0 g/dL 06/08/2024 7:05 AM [facility] Total Bilirubin 1.9(H) 0.2 - 1.0 mg/dL 06/08/2024 7:05 AM [facility] Comment:Use of this assay is not recommended for patients undergoing treatment with Eltrombopag due to the potential for falsely elevated results. Alkaline Phosphatase 265(H) 45 - 117 U/L 06/08/2024 7:05 AM [facility] Alanine Aminotransferase (ALT) 161(H) 12 - 78 U/L 06/08/2024 7:05 AM [facility] Aspartate Aminotransferase (AST) 62(H) 15 - 37 U/L 06/08/2024 7:05 AM [facility] eGFR (Creatinine) >60 >=60 mL/min/1.73 m2 06/08/2024 7:05 AM [facility] Comment: [facility] utilizes CKD-EPI Creatinine 2020 to report eGFR. Values < 60 mL/min/1.73 m2 may indicate CKD if present for more than three months AND creatinine is at steady state. The eGFR provides a rough estimate of kidney function. For further guidance, please refer to the CKD: Adult Equal Opportunity Assistant Signature pathway. Creatinine Delta 0.01 See Comment 04/24/2 025 7:05 AM EDT [facility] Comment: Delta creatinine is the difference [...] Morejon DO LAB BLOOD ORDERABLES [place] [address], [facility] [phone] * Hepatitis C Ab with reflex to HCV PCR (2024 5:07 AM EDT) Hepatitis C Antibody Negative Negative 06/05/2024 8:32 AM EDT [facility] Blood Venipuncture / Unknown 2024 5:07 AM EDT 2024 6:18 AM EDT Chaim Rosales MD LAB BLOOD ORDERABLES Final Resul t [facility] [address] [place] [address] from Last 3 Months or Most Recently Relevant to Health Maintenance Insurance MEDICARE MANAGED [facility] MEDICARE MANAGED [facility] [place] [id number] MEDICARE MANAGED [facility] Advance Directives * Full Code (Latest Code Status on File) Date Activated Date Inactivated Comments 06/02/2024 12:47 PM 06/08/2024 4:56 PM Question Answer Comments With Whom was the Code Status Discussed? Patient Care Teams Records Supervisor Relationship Specialty Start Date End Date Nini Welsh PA [address] [place] [address] PCP - General Physician Geoint Analyst 06/02/24
--- OUTSIDE RECORDS SUMMARY | 2024-11-06 11:29 | XMS_ITS | Encounter Summary ---
Author Organization [facility] Address [address] [place] [address] Care Team Providers Care Organ Recovery Coordinator Name Role Phone Nini Welsh Primary Care Provider [phone] Encounter Details Date Type Department Care Team (Late st Contact Info) Description 08/24/2024 Lab Requisition [facility] - Main Lab [address] [facility] [place] [address] Roge Werner PA [address] [place] [phone] Calculus of kidney Social History Tobacco Use [...] LAB CHEMISTRY METHOD 08/24/2024 12:10 PM EDT [facility] Blood Venous blood specimen / Unknown 08/24/2024 9:05 AM EDT 08/24/2024 11:07 AM EDT us Roge WISEMAN LAB BLOOD ORDERABLES Final Res ult [facility] [address] [place] [address], documented in this encounter Visit Diagnoses Diagnosis Calculus of kidney documented in this encounter Care Teams Organ Recovery Coordinator Relationship Specialty Start Date End Date Nini Welsh PA [address] [place] [address] PCP - General Physician Inspector Firearms 08/24/24 documented as of this encounter
== END 2024-11-06 09:47 | disposition home or self-care (01) ==
LOC: HO.HMGAL 09:41
PROVIDERS: PCP Physician Assistant; Visit Provider Registered Nurse Emergency
DX: J30.89 Other allergic rhinitis (principal)
CPT/HCPCS: 95117; 95165

== ENCOUNTER 2024-11-20 10:13 | Outpatient (AMB) | payer OTHER, SELFPAY ==
--- OUTSIDE RECORDS SUMMARY | 2024-11-20 11:53 | XMS_ITS | Patient Health Record ---
Author Organization [facility] Address [address] [place] [address] Care Team Providers Care Color Grinder Name Role Phone Nini Tuttle Primary Care Provider U Castro White Unavailable [phone] Reason For Referral No Information Medications Medication [...] Problem Status W/U Status Risk Notes Problem [id number] Encounter for screening for malignant neoplasm of colon (Z12.11) Active confirmed Problem [id number] History of adenomatous polyp of colon (Z86.010) Active confirmed Problem [id number] Preprocedural examination (Z01.818) Active confirmed Plan Of Treatment Future Test Test Name Order Date COLONOSCOPY 04/11/2014 COLONOSCOPY 08/01/2019 Next Appt Details Provider Name:Castro Lopez , 02/20/2025 01:00:00 PM, [address], [address], [place], [address], Insurance Providers Payer Name Payer Address Payer Phone Subscriber Number Group Number Insured Name Patient Relationship to Insured Coverage Start Date Coverage End Date [facility] [address] [place] [address] [id number] JUDY HEWITT Self - patient is the insured Medical (General) History Medical History History ICD Code 01/03/2007 Colonoscopy--1 sm all tubular adenoma, sigmoid diverticulosis, internal hemorrhoids Chronic back pain Kidney [id number]-nruwiwfce Skull fracture Hypertension HTN Denies [place],DM,CVA,Lung disease,renal dise ase Sleep apnea on CPAP machine Hx of bronchitis in the winter Neg. screening colonoscopy in 07/2014 Surgical History Surgery Date(Month/Year) Spinal fusion C-spine fusion Carpal tunnel release Fractured skull Ulnar nerve entrapment Knee surgery
--- OUTSIDE RECORDS SUMMARY | 2024-11-20 11:53 | XMS_ITS | Encounter Summary ---
Author Organization [facility] Address [address] [place] [address] Care Team Providers Care Sap Administrator Name Role Phone Nini Welsh Primary Care Provider Encounter Details Date Type Department Care Team (Late st Contact Info) Description 08/24/2024 Lab Requisition [facility] - Main Lab [address] [facility] [place] [address] Roge Werner PA [address] [place] [phone] Calculus of kidney Social History Tobacco Use [...] LAB CHEMISTRY METHOD 08/24/2024 12:10 PM EDT [facility] Blood Venous blood specimen / Unknown 08/24/2024 9:05 AM EDT 08/24/2024 11:07 AM EDT us Roge WISEMAN LAB BLOOD ORDERABLES Final Res ult [facility] [address] [place] [address], documented in this encounter Visit Diagnoses Diagnosis Calculus of kidney documented in this encounter Care Teams Sap Administrator Relationship Specialty Start Date End Date Nini Wlesh PA [address] [place] [address] PCP - General Physician Nursery Rn 08/24/24 documented as of this encounter
--- OUTSIDE RECORDS SUMMARY | 2024-11-20 11:53 | XMS_ITS | Clinical Summary ---
Author Organization [facility] Location Address [address] [place] [address] Phone Care Team Providers Care Rn Admissions Name Role Phone Nini Welsh Primary Care Provider [phone] Encounters Date Type Department Care Team Description 08/24/2024 Lab Requisition [facility] - Main Lab [address] [facility] [place] [address] Roge Werner PA Calculus of [...] Health Maintenance Due Date Last Done Comments Colorectal Cancer Screening: Colonoscopy 1960 Pneumococcal Vaccine: 50+ Years (1 of 1 - PCV) 06/03/2009 Zoster Vaccines (1 of 2) 06/03/2009 Abdominal Aortic Aneurysm (AAA) Screen 01/14/2022 Cholesterol Screening (Lipid Panel) 01/14/2022 Hepatitis C Screening 01/14/2022 Medicare Annual [...] CHEMISTRY METHOD 08/24/2024 12:[address] [facility] Blood Venous blood specimen / Unknown 08/24/2024 9:05 AM EDT 08/24/2024 11:07 AM EDT us Rogegala WISEMAN LAB BLOOD ORDERABLES Final Res ult [facility] [address] [place] [address], [place] [phone] from Last 3 Months Insurance [employer] MEDICARE Member Subscriber Plan / Payer (Ef fective 2013-Present) Name:JUDY HEWITT Relation to Subscriber:Self Name:Judy Hewitt Payer ID:[id number] Group ID:[id number] Type:Not on file Address: [place] [address] [place] [phone] Care Teams Rn Admissions Relationship Specialty Start Date End Date Nini Welsh PA [address] [place] [address] PCP - General Physician Defensive Line Coach 08/24/24
--- OUTSIDE RECORDS SUMMARY | 2024-11-20 11:53 | XMS_ITS | Clinical Summary ---
Author Organization [address] Address [address] [place] [phone] Phone Care Team Providers Care Golf Coach Name Role Phone Nini Welsh Primary Care [...] Years Used Date Smoking Tobacco: Never Assessed [facility] Utilities Answer Date Recorded In the past 12 months has [employer], gas, oil, or water [employer] threatened to shut off services in your [...] your living situation today? I have a [facility] place to live 06/02/2024 Housing [...] 136 - 145 mmol/L 06/08/2024 7:05 AM [facility] Potassium 4.1 3.5 - 5.1 mmol/L 06/08/2024 7:05 AM [facility] Chloride 101 98 - 107 mmol/L 06/08/2024 7:05 AM EDT [facility] CO2 29 21 - 32 mmol/L 06/08/2024 7:05 AM [facility] Anion Gap 8 5 - 15 mmol/L 06/08/2024 7:05 AM [facility] Glucose 129(H) 65 - 110 mg/dL 06/08/2024 7:05 AM [facility] Comment: Non-fastin-110 mg/dL Fasting (minimum 6 hrs): 65-99 mg/dL BUN 11 7 - 18 mg/dL 06/08/2024 7:05 AM [facility] Creatinine 0.76 0.70 - 1.30 mg/dL 06/08/2024 7:05 AM [facility] Calcium 9.2 8.5 - 10.1 mg/dL 06/08/2024 7:05 AM [facility] Total Protein 7.0 6.4 - 8.2 g/dL 06/08/2024 7:05 AM [facility] Albumin 3.3(L) 3.4 - 5.0 g/dL 06/08/2024 7:05 AM [facility] Globulin 3.7 2.5 - 5.0 g/dL 06/08/2024 7:05 AM [facility] Total Bilirubin 1.9(H) 0.2 - 1.0 mg/dL 06/08/2024 7:05 AM [facility] Comment:Use of this assay is not recommended for patients undergoing treatment with Eltrombopag due to the potential for falsely elevated results. Alkaline Phosphatase 265(H) 45 - 117 U/L 06/08/2024 7:05 AM [facility] Alanine Aminotransferase (ALT) 161(H) 12 - 78 U/L 06/08/2024 7:05 AM [facility] Aspartate Aminotransferase (AST) 62(H) 15 - 37 U/L 06/08/2024 7:05 AM [facility] eGFR (Creatinine) >60 >=60 mL/min/1.73 m2 06/08/2024 7:05 AM [facility] Comment: [facility] utilizes CKD-EPI Creatinine 2020 to report eGFR. Values < 60 mL/min/1.73 m2 may indicate CKD if present for more than three months AND creatinine is at steady state. The eGFR provides a rough estimate of kidney function. For further guidance, please refer to the CKD: Adult Airbrush Artist Technical Signature pathway. Creatinine Delta 0.01 See Comment 04/24/2 025 7:05 AM EDT [facility] Comment: Delta creatinine is the difference [...] Morejon DO LAB BLOOD [place] [address], [facility] [phone] * Hepatitis C Ab with reflex to HCV PCR (2024 5:07 AM EDT) Hepatitis C Antibody Negative Negative 06/05/2024 8:32 AM EDT [facility] Blood Venipuncture / Unknown 2024 5:07 AM EDT 2024 6:18 AM EDT Chaim Rosales MD LAB BLOOD ORDERABLES Final Resul t [facility] [address] [place] [address] from Last 3 Months or Most Recently Relevant to Health Maintenance Insurance MEDICARE MANAGED [facility] MEDICARE MANAGED [facility] [place] [place] [id number] [facility] Advance Directives * Full Code (Latest Code Status on File) Date Activated Date Inactivated Comments 06/02/2024 12:47 PM 06/08/2024 4:56 PM Question Answer Comments With Whom was the Code Status Discussed? Patient Care Teams Golf Coach Relationship Specialty Start Date End Date Nini Welsh PA [address] [place] [address] PCP - General Physician Player Piano Technician 06/02/24
== END 2024-11-20 10:49 | disposition home or self-care (01) ==
LOC: HO.HMGAL 10:13
PROVIDERS: PCP Physician Assistant; Visit Provider Registered Nurse Emergency
DX: J30.89 Other allergic rhinitis (principal)
CPT/HCPCS: 95117; 95165

== ENCOUNTER 2024-12-06 09:52 | Outpatient (AMB) | payer OTHER, SELFPAY ==
--- OUTSIDE RECORDS SUMMARY | 2024-12-06 11:49 | XMS_ITS | Clinical Summary ---
Author Organization [address] Address [address] [place] [address] Phone Care Team Providers Care Chief Controller Station Name Role Phone Nini Welsh Primary Care [...] Years Used Date Smoking Tobacco: Never Assessed [facility] Utilities Answer Date Recorded In the past 12 months has [employer], gas, oil, or water [employer] threatened to shut off services in your [...] your living situation today? I have a [facility] place to live 06/02/2024 Housing Stability [...] 136 - 145 mmol/L 06/08/2024 7:05 AM [facility] Potassium 4.1 3.5 - 5.1 mmol/L 06/08/2024 7:05 AM [facility] Chloride 101 98 - 107 mmol/L 06/08/2024 7:05 AM EDT [facility] CO2 29 21 - 32 mmol/L 06/08/2024 7:05 AM [facility] Anion Gap 8 5 - 15 mmol/L 06/08/2024 7:05 AM [facility] Glucose 129(H) 65 - 110 mg/dL 06/08/2024 7:05 AM [facility] Comment: Non-fastin-110 mg/dL Fasting (minimum 6 hrs): 65-99 mg/dL BUN 11 7 - 18 mg/dL 06/08/2024 7:05 AM [facility] Creatinine 0.76 0.70 - 1.30 mg/dL 06/08/2024 7:05 AM [facility] Calcium 9.2 8.5 - 10.1 mg/dL 06/08/2024 7:05 AM [facility] Total Protein 7.0 6.4 - 8.2 g/dL 06/08/2024 7:05 AM [facility] Albumin 3.3(L) 3.4 - 5.0 g/dL 06/08/2024 7:05 AM [facility] Globulin 3.7 2.5 - 5.0 g/dL 06/08/2024 7:05 AM [facility] Total Bilirubin 1.9(H) 0.2 - 1.0 mg/dL 06/08/2024 7:05 AM [facility] Comment:Use of this assay is not recommended for patients undergoing treatment with Eltrombopag due to the potential for falsely elevated results. Alkaline Phosphatase 265(H) 45 - 117 U/L 06/08/2024 7:05 AM [facility] Alanine Aminotransferase (ALT) 161(H) 12 - 78 U/L 06/08/2024 7:05 AM [facility] Aspartate Aminotransferase (AST) 62(H) 15 - 37 U/L 06/08/2024 7:05 AM [facility] eGFR (Creatinine) >60 >=60 mL/min/1.73 m2 06/08/2024 7:05 AM [facility] Comment: [facility] utilizes CKD-EPI Creatinine 2020 to report eGFR. Values < 60 mL/min/1.73 m2 may indicate CKD if present for more than three months AND creatinine is at steady state. The eGFR provides a rough estimate of kidney function. For further guidance, please refer to the CKD: Adult Mastic Man Signature pathway. Creatinine Delta 0.01 See Comment 04/24/2 025 7:05 AM EDT [facility] Comment: Delta creatinine is the difference between [...] Morejon DO LAB [place] [address], [facility] [phone] * Hepatitis C Ab with reflex to HCV PCR (2024 5:07 AM EDT) Hepatitis C Antibody Negative Negative 06/05/2024 8:32 AM EDT [facility] Blood Venipuncture / Unknown 2024 5:07 AM EDT 2024 6:18 AM EDT Chaim Rosales MD LAB BLOOD ORDERABLES Final Resul t [facility] [address] [place] [address] from Last 3 Months or Most Recently Relevant to Health Maintenance Insurance [place]IC[place] [facility] [facility] [place] [id number] MEDICARE MANAGED [facility] Advance Directives * Full Code (Latest Code Status on File) Date Activated Date Inactivated Comments 06/02/2024 12:47 PM 06/08/2024 4:56 PM Question Answer Comments With Whom was the Code Status Discussed? Patient Care Teams Chief Controller Station Relationship Specialty Start Date End Date Nini Welsh PA [address] [place] [address] PCP - General Physician Application Processor 06/02/24
--- OUTSIDE RECORDS SUMMARY | 2024-12-06 11:50 | XMS_ITS | Clinical Summary ---
Author Organization [facility] Location Address [address] [place] [address] Phone Care Team Providers Care Enrollment Advisor Name Role Phone Nini Welsh Primary Care Provider [phone] Social History Tobacco Use Types Packs/Day Years [...] Additional history exists Influenza Vaccine (#1) 2024 , 01/13/2021, 12/04/2019, Additional history exists DTaP,Tdap,and Td [...] on patient's age to complete this topic Insurance [employer] MEDICARE Member Subscriber Plan / Payer (Ef fective 2013-Present) Name:JUDY HEWITT Relation to Subscriber:Self Name:Judy Hewitt Payer ID:[id number] Group ID:[id number] Type:Not on file Address: [place] [address] [place] [phone] Care Teams Enrollment Advisor Relationship Specialty Start Date End Date Nini Welsh [facility] [address] [facility] [place] [address] PCP - General Physician Veterinary Surgery Technologist 08/24/24
--- OUTSIDE RECORDS SUMMARY | 2024-12-06 11:50 | XMS_ITS | Patient Health Record ---
Author Organization [facility] Address [address] [place] [address] Care Team Providers Care Corner Cutter Machine Operator Name Role Phone Nini Tuttle Primary Care Provider U Castro White Unavailable [phone] Reason For Referral No Information Medications Medication SIG (Take, Route, Frequency, Duration) Notes Start Date End Date Status Multi Adult Gummies - as directed Orally Active Metaxalone 800 MG TAKE 1 TABLET BY MOUTH 3 TIMES A DAY Oral; Duration: 14 Not-Taking Vitamin C 500 MG 1 tablet Orally Once a day; Duration: 30 day(s) Active Proctosol HC 2.5 % 1 application to affected area Rectal Twice a day; Duration: 30 day(s) 04/12/2014 Not-Taking Anusol-HC 2.5 % 1 application to affected area Rectal Twice a day; Duration: 30 day(s) 04/11/2014 Not-Taking oxyCODONE HCl 10 MG TAKE 1 TABLET BY MOUTH EVERY 6 HOURS Oral; Duration: 28 4 times a day for back pain Active Loratadine 10 MG TAKE 1 TABLET BY MOUTH EVERY DAY Oral; Duration: 30 Active amLODIPine Besy-Benazepril HCl 10-20 MG TAKE 1 CAPSULE BY MOUTH DAILY Oral; Duration: 30 Active Immunizations Vaccine Route Administration Date Status Comme nts Influenza Unknown 11/15/2018 Administered Social History Alcohol Screen Question Answer Notes Did you have a drink containing alcohol in the p ast year? No Points 0 Interpretation Negative Section Notes: Nonsmoker; no alcohol Problems Problem Type SNOMED Code ICD Code Onset Dates Problem Status W/U Status Risk Notes Problem Screening for malignant neoplasm of colon (770515760) Encounter for screening for malignant neoplasm of colon (Z12.11) Active confirmed Problem History of adenomatous polyp of colon (729159324) History of adenomatous polyp of colon (Z86.010) Active confirmed Problem Preprocedural examination (408311629389801) Preprocedural examination (Z01.818) Active confirmed Plan Of Treatment Future Test Test Name Order Date COLONOSCOPY 04/11/2014 COLONOSCOPY 08/01/2019 Next Appt Details Provider Name:Castro Lopez , 02/20/2025 01:00:00 PM, [address], [address], [place], [address], Insurance Providers Payer Name Payer Address Payer Phone Subscriber Number Group Number Insured Name Patient Relationship to Insured Coverage Start Date Coverage End Date [facility] [address] [place] [address] [id number] JUDY HEWITT Self - patient is the insured Medical (General) History Medical History History ICD Code 01/03/2007 Colonoscopy--1 sm all tubular adenoma, sigmoid diverticulosis, internal hemorrhoids Chronic back pain Kidney [id number] Skull fracture Hypertension HTN Denies [place],DM,CVA,Lung disease,renal dise ase Sleep apnea on CPAP machine Hx of bronchitis in the winter Neg. screening colonoscopy in 07/2014 Surgical History Surgery Date(Month/Year) Spinal fusion C-spine fusion Carpal tunnel release Fractured skull Ulnar nerve entrapment Knee surgery
--- OUTSIDE RECORDS SUMMARY | 2024-12-06 11:50 | XMS_ITS | Encounter Summary ---
Author Organization [facility] Address [address] [place] [address] Care Team Providers Care Soil Checker Name Role Phone Nini Welsh Primary Care Provider [phone] Encounter Details Date Type Department Care Team (Late st Contact Info) Description 08/24/[address] [facility] - Main Lab [address] [facility] [place] [address] Roge Werner PA [address] [place] [phone] Calculus of kidney Social History Tobacco Use [...] LAB CHEMISTRY METHOD 08/24/2024 12:10 PM EDT [facility]) [facility] Blood Venous blood specimen / Unknown 08/24/2024 9:05 AM EDT 08/24/2024 11:07 AM EDT us Roge WISEMAN LAB BLOOD ORDERABLES Final Res ult [facility] [address] [place] [address], documented in this encounter Visit Diagnoses Diagnosis Calculus of kidney documented in this encounter Care Teams Soil Checker Relationship Specialty Start Date End Date Nini Welsh PA [address] [place] [address] PCP - General Physician Lending Advisor 08/24/24 documented as of this encounter
== END 2024-12-06 09:54 | disposition home or self-care (01) ==
LOC: HO.HMGAL 09:52
PROVIDERS: PCP Physician Assistant; Visit Provider Registered Nurse Emergency
DX: J30.89 Other allergic rhinitis (principal)
CPT/HCPCS: 95117; 95165

== ENCOUNTER 2024-12-18 10:29 | Outpatient (AMB) | payer OTHER, SELFPAY ==
--- OUTSIDE RECORDS SUMMARY | 2024-12-18 12:40 | XMS_ITS | Clinical Summary ---
Author Organization [facility] Location Address [address] [place] [address] Phone Care Team Providers Care Lumber Straightened Name Role Phone Nini Welsh Primary Care Provider [phone] Social History Tobacco Use Types Packs/Day Years [...] ID:[id number] Group ID:[id number] Type:Not on file Address: [place] [address] [address] [phone] Care Teams Lumber Straightened Relationship Specialty Start Date End Date Nini Welsh PA [address] [facility] [place] [address] PCP - General Physician Fire Extinguisher Repairer 08/24/24
--- OUTSIDE RECORDS SUMMARY | 2024-12-18 12:40 | XMS_ITS | Patient Health Record ---
Author Organization [facility] Address [address] [place] [address] Care Team Providers Care Buffing Machine Operator Name Role Phone Nini Tuttle Primary Care Provider U Castro White Unavailable [phone] Reason For Referral No Information Medications Medication [...] Problem Screening for malignant neoplasm of colon (800191379) Encounter for screening for malignant neoplasm of colon (Z12.11) Active confirmed Problem History of adenomatous polyp of colon (671679339) History of adenomatous polyp of colon (Z86.010) Active confirmed Problem Preprocedural examination (560066803549893) Preprocedural examination (Z01.818) Active confirmed Plan Of Treatment Future Test Test Name Order Date COLONOSCOPY 04/11/2014 COLONOSCOPY 08/01/2019 Next Appt Details Provider Name:Castro Lopez , 02/20/2025 01:00:00 PM, [address], [address], [place], [address], Insurance Providers Payer Name Payer Address Payer Phone Subscriber Number Group Number Insured Name Patient Relationship to Insured Coverage Start Date Coverage End Date [facility] [address] [place] [address] [id number] JUDY HEWITT Self - patient is the insured Medical (General) History Medical History History ICD Code 01/03/2007 Colonoscopy--1 sm all tubular adenoma, sigmoid diverticulosis, internal hemorrhoids Chronic back pain Kidney [id number]-[id number] Skull fracture Hypertension HTN Denies [place],DM,CVA,Lung disease,renal dise ase Sleep apnea on CPAP machine Hx of bronchitis in the winter Neg. screening colonoscopy in 07/2014 Surgical History Surgery Date(Month/Year) Spinal fusion C-spine fusion Carpal tunnel release Fractured skull Ulnar nerve entrapment Knee surgery
--- OUTSIDE RECORDS SUMMARY | 2024-12-18 12:40 | XMS_ITS | Encounter Summary ---
Author Organization [facility] Address [address] [place] [address] Care Team Providers Care Hand Outside Cutter Name Role Phone Nini Welsh Primary Care Provider Encounter Details Date Type Department Care Team (Late st Contact Info) Description 08/24/2024 Lab Requisition [facility] - Main Lab [address] [facility] [place] [address] Roge Werner PA [address] [place] [phone] Calculus of kidney Social History Tobacco Use [...] LAB CHEMISTRY METHOD 08/24/2024 12:10 PM EDT [facility] ([facility] Blood Venous blood specimen / Unknown 08/24/2024 9:05 AM EDT 08/24/2024 11:07 AM EDT us Roge WISEMAN LAB BLOOD ORDERABLES Final [facility] [address] [place] [address], documented in this encounter Visit Diagnoses Diagnosis Calculus of kidney documented in this encounter Care Teams Hand Outside Cutter Relationship Specialty Start Date End Date Nini Welsh PA [address] [place] [address] PCP - General Physician Tube Draw Helper 08/24/24 documented as of this encounter
--- OUTSIDE RECORDS SUMMARY | 2024-12-18 12:40 | XMS_ITS | Clinical Summary ---
Author Organization [address] Address [address] [place] [address] Phone Care Team Providers Care Door Liner Name Role Phone Nini Welsh Primary Care [...] Years Used Date Smoking Tobacco: Never Assessed [facility] Utilities Answer Date Recorded In the past 12 months has [employer], gas, oil, or water [employer] threatened to shut off services in your [...] your living situation today? [facility] 06/02/2024 Housing Stability [...] - 107 mmol/L 06/08/2024 7:05 AM EDT [facility] CO2 29 21 - 32 mmol/L [...] AM [facility] Comment: [facility] utilizes CKD-EPI Creatinine 2020 to report eGFR. Values < 60 mL/min/1.73 m2 may indicate CKD if present for more than three months AND creatinine is at steady state. The eGFR provides a rough estimate of kidney function. For further guidance, please refer to the CKD: Adult Painter And Decorator Signature pathway. Creatinine Delta 0.01 See Comment 04/24/2 025 7:05 AM EDT [facility] Comment: Delta creatinine is the difference [...] Morejon DO LAB BLOOD [place] [address], [facility] [phone] * Hepatitis C Ab with reflex to HCV PCR (2024 5:07 AM EDT) Hepatitis C Antibody Negative Negative 06/05/2024 8:[address] [facility] Blood Venipuncture / Unknown 2024 5:07 AM EDT 2024 6:18 AM EDT Chaim Rosales MD LAB BLOOD ORDERABLES Final Resul t [facility] [address] [place] [address] from Last 3 Months or Most Recently Relevant to Health Maintenance Insurance MEDICARE MANAGED [facility] MEDICARE MANA[place]ED [facility] [place] [id number] MEDICARE MANAGED [facility] Advance Directives * Full Code (Latest Code Status on File) Date Activated Date Inactivated Comments 06/02/2024 12:47 PM 06/08/2024 4:56 PM Question Answer Comments With Whom was the Code Status Discussed? Patient Care Teams Door Liner Relationship Specialty Start Date End Date Nini Welsh PA [address] [place] [address] PCP - General Physician Hand Launderer 06/02/24
== END 2024-12-18 10:30 | disposition home or self-care (01) ==
LOC: HO.HMGAL 10:29
PROVIDERS: PCP Physician Assistant; Visit Provider Registered Nurse Emergency
DX: J30.89 Other allergic rhinitis (principal)
CPT/HCPCS: 95117; 95165

== ENCOUNTER 2025-01-03 09:53 | Outpatient (AMB) | payer OTHER, SELFPAY ==
--- OUTSIDE RECORDS SUMMARY | 2025-01-03 18:29 | XMS_ITS | Clinical Summary ---
Author Organization [address] Address [address] [place] [phone] Phone Care Team Providers Care Embedded Developer Name Role Phone Nini Welsh Primary Care [...] Years Used Date Smoking Tobacco: Never Assessed [facility] Utilities Answer Date Recorded In the past 12 months has [employer], gas, oil, or water [employer] threatened to shut off services in your [...] your living situation today? I have a [facility] place to live 06/02/2024 Housing Stability [...] 136 - 145 mmol/L 06/08/2024 7:05 AM [facility] Potassium 4.1 3.5 - 5.1 mmol/L 06/08/2024 7:05 AM [facility] Chloride 101 98 - 107 mmol/L 06/08/2024 7:05 AM EDT [facility] CO2 29 21 - 32 mmol/L 06/08/2024 7:05 AM [facility] Anion Gap 8 5 - 15 mmol/L 06/08/2024 7:05 AM [facility] Glucose 129(H) 65 - 110 mg/dL 06/08/2024 7:05 AM [facility] Comment: Non-fastin-110 mg/dL Fasting (minimum 6 hrs): 65-99 mg/dL BUN 11 7 - 18 mg/dL 06/08/2024 7:05 AM [facility] Creatinine 0.76 0.70 - 1.30 mg/dL 06/08/2024 7:05 AM [facility] Calcium 9.2 8.5 - 10.1 mg/dL 06/08/2024 7:05 AM [facility] Total Protein 7.0 6.4 - 8.2 g/dL 06/08/2024 7:05 AM [facility] Albumin 3.3(L) 3.4 - 5.0 g/dL 06/08/2024 7:05 AM [facility] Globulin 3.7 2.5 - 5.0 g/dL 06/08/2024 7:05 AM [facility] Total Bilirubin 1.9(H) 0.2 - 1.0 mg/dL 06/08/2024 7:05 AM [facility] Comment:Use of this assay is not recommended for patients undergoing treatment with Eltrombopag due to the potential for falsely elevated results. Alkaline Phosphatase 265(H) 45 - 117 U/L 06/08/2024 7:05 AM [facility] Alanine Aminotransferase (ALT) 161(H) 12 - 78 U/L 06/08/2024 7:05 AM [facility] Aspartate Aminotransferase (AST) 62(H) 15 - 37 U/L 06/08/2024 7:05 AM [facility] eGFR (Creatinine) >60 >=60 mL/min/1.73 m2 06/08/2024 7:05 AM [facility] Comment: [facility] utilizes CKD-EPI Creatinine 2020 to report eGFR. Values < 60 mL/min/1.73 m2 may indicate CKD if present for more than three months AND creatinine is at steady state. The eGFR provides a rough estimate of kidney function. For further guidance, please refer to the CKD: Adult Digital Controls Technical Officer Signature pathway. Creatinine Delta 0.01 See Comment [...] Morejon DO LAB [place] [address], [facility] [phone] * Hepatitis C Ab with reflex to HCV PCR (2024 5:07 AM EDT) Hepatitis C Antibody Negative Negative 06/05/2024 8:32 AM EDT [facility] Blood Venipuncture / Unknown 2024 5:07 AM EDT 2024 6:18 AM EDT Chaim Rosales MD LAB BLOOD ORDERABLES Final Resul t [facility] [address] [place] [address] from Last 3 Months or Most Recently Relevant to Health Maintenance Insurance [place]IC[place] [facility] [place] [facility] [place] [id number] MEDICARE [place] [facility] Advance Directives * Full Code (Latest Code Status on File) Date Activated Date Inactivated Comments 06/02/2024 12:47 PM 06/08/2024 4:56 PM Question Answer Comments With Whom was the Code Status Discussed? Patient Care Teams Embedded Developer Relationship Specialty Start Date End Date Nini Welsh PA [address] [place] [address] PCP - General Physician Electronics Engineer 06/02/24
--- OUTSIDE RECORDS SUMMARY | 2025-01-03 18:29 | XMS_ITS | Clinical Summary ---
Author Organization [facility] Location Address [address] [place] [address] Phone Care Team Providers Care Administrative Services Manager Name Role Phone Nini Welsh Primary Care Provider [phone] Social History Tobacco Use Types Packs/Day Years [...] ID:[id number] Group ID:[id number] Type:Not on file Address: [place] [address] [place] [address] Care Teams Administrative Services Manager Relationship Specialty Start Date End Date Nini Welsh PA [address] [facility] [place] [phone] PCP - General Physician Apparel Trimmings Sales Representative 08/24/24
--- OUTSIDE RECORDS SUMMARY | 2025-01-03 18:29 | XMS_ITS | Patient Health Record ---
Author Organization [facility] Address [address] [place] [address] Care Team Providers Care Secretary Specialist Name Role Phone Nini Tuttle Primary Care Provider U alCastro Gutierrez Unavailable [phone] Reason For Referral No Information Medications Medication SIG (Take, Route, Frequency, Duration) Notes Start Date End Date Status Multi Adult Gummies - Tablet Chewable as directed Orally Acti ve Metaxalone 800 MG Tablet TAKE 1 TABLET BY MOUTH 3 TIMES A DAY Oral; Duration: 14 Not-Taking/CO N Vitamin C 500 MG Tablet 1 tablet Orally Once a day; Duration: 30 day(s) Active Proctosol HC 2.5 % Cream 1 application to affected area Rectal Twice a day; Duration: 30 day(s) 04/12/2014 Not-Taking/P RN Anusol-HC 2.5 % Cream 1 application to affected area Rectal Twice a day; Duration: 30 day(s) 04/11/2014 Not-Taking/P RN oxyCODONE HCl 10 MG Tablet TAKE 1 TABLET BY MOUTH EVERY 6 HOURS Oral; Duration: 28 4 times a day for back pain Active Loratadine 10 MG Tablet TAKE 1 TABLET BY MOUTH EVERY DAY Oral; Duration: 30 Active amLODIPine Besy-Benazepril HCl 10-20 MG Capsule TAKE 1 CAPSULE BY MOUTH DAILY Oral; Duration: 30 Active Immunizations Vaccine Route Administration Date Status Comme nts Influenza Unknown 11/15/2018 Administered Social History Social History Drugs/Alcohol: Social Info Question Answer Notes Alcohol Screen Did you have a drink containing alcohol in the past year? No Points 0 Interpretation Negative Additional Details Category Social Info Options Details Miscellaneous: Marital status: Occupation: disability Section Notes: Nonsmoker; no alcohol Problems Problem Type SNOMED Code ICD Code Onset Dates Problem Status W/U Status Risk Notes Problem Screening for malignant neoplasm of colon (929004008) Encounter for screening for malignant neoplasm of colon (Z12.11) Active confirmed Problem History of adenomatous polyp of colon (879515606) History of adenomatous polyp of colon (Z86.010) Active confirmed Problem Preprocedural examination (722659390306367) Preprocedural examination (Z01.818) Active confirmed Plan Of Treatment Future Test Test Name Order Date COLONOSCOPY 04/11/2014 COLONOSCOPY 08/01/2019 Next Appt Details Provider Name:Castro Lopez , 02/20/2025 01:00:00 PM, [address] [facility], [address], [place], [address], Insurance Providers Payer Name Payer Address Payer Phone Subscriber Number Group Number Insured Name Patient Relationship to Insured Coverage Start Date Coverage End Date [facility] [address] [place] [address] [id number] JUDY HEWITT Self - patient is the insured Medical (General) History Medical History History ICD Code 01/03/2007 Colonoscopy--1 sm all tubular adenoma, sigmoid diverticulosis, internal hemorrhoids Chronic back pain Kidney [id number] Skull fracture Hypertension HTN Denies [place],DM,CVA,Lung disease,renal dise ase Sleep apnea on CPAP machine Hx of bronchitis in the winter Neg. screening colonoscopy in 07/2014 Surgical History Surgery Date(Month/Year) Spinal fusion C-spine fusion Carpal tunnel release Fractured skull Ulnar nerve entrapment Knee surgery
--- OUTSIDE RECORDS SUMMARY | 2025-01-03 18:29 | XMS_ITS | Encounter Summary ---
Author Organization [facility] Address [address] [place] [address] Care Team Providers Care Black Top Roller Name Role Phone Nini Welsh Primary Care Provider [phone] Encounter Details Date Type Department Care Team (Late st Contact Info) Description 08/24/2024 Lab Requisition [facility] - Main Lab [address] [facility] [place] [address] Roge Werner PA [address] [place] [phone] Calculus of kidney Social History Tobacco Use [...] LAB CHEMISTRY METHOD 08/24/2024 12:10 PM EDT [facility] ([facility] Blood Venous blood specimen / Unknown 08/24/2024 9:05 AM EDT 08/24/2024 11:07 AM EDT us Roge WISEMAN LAB BLOOD ORDERABLES Final Res [facility] [address] [place] [address], documented in this encounter Visit Diagnoses Diagnosis Calculus of kidney documented in this encounter Care Teams Black Top Roller Relationship Specialty Start Date End Date Nini Welsh PA [address] [place] [address] PCP - General Physician Credit Product Analyst 08/24/24 documented as of this encounter
== END 2025-01-03 09:55 | disposition home or self-care (01) ==
LOC: HO.HMGAL 09:53
PROVIDERS: PCP Physician Assistant; Visit Provider Registered Nurse Emergency
DX: J30.89 Other allergic rhinitis (principal)
CPT/HCPCS: 95117; 95165

== ENCOUNTER 2025-01-15 10:23 | Outpatient (AMB) | payer OTHER, SELFPAY ==
--- OUTSIDE RECORDS SUMMARY | 2025-01-15 13:00 | XMS_ITS | Clinical Summary ---
Author Organization [facility] Location Address [address] [place] [address] Phone Care Team Providers Care Accounting Machine Servicer Name Role Phone Nini Welsh Primary Care Provider [phone] Social History Tobacco Use Types Packs/Day Years [...] ID:[id number] Group ID:[id number] Type:Not on file Address: [place] [address] [place] [address] Care Teams Accounting Machine Servicer Relationship Specialty Start Date End Date Nini Welsh PA [address] [facility] [place] [phone] PCP - General Physician Verse Writer 08/24/24
--- OUTSIDE RECORDS SUMMARY | 2025-01-15 13:00 | XMS_ITS | Clinical Summary ---
Author Organization [address] Address [address] [place] [address] Phone Care Team Providers Care Knowledge Management Consultant Name Role Phone Nini Welsh Primary Care [...] Years Used Date Smoking Tobacco: Never Assessed [facility] Utilities Answer Date Recorded In the past 12 months has [employer], gas, oil, or water [employer] threatened to shut off services in your [...] your living situation today? I have a [facility] place to live 06/02/2024 Housing Stability [...] 136 - 145 mmol/L 06/08/2024 7:05 AM [facility] Potassium 4.1 3.5 - 5.1 mmol/L 06/08/2024 7:05 AM [facility] Chloride 101 98 - 107 mmol/L 06/08/2024 7:05 AM EDT [facility] CO2 29 21 - 32 mmol/L 06/08/2024 7:05 AM [facility] Anion Gap 8 5 - 15 mmol/L 06/08/2024 7:05 AM [facility] Glucose 129(H) 65 - 110 mg/dL 06/08/2024 7:05 AM [facility] Comment: Non-fastin-110 mg/dL Fasting (minimum 6 hrs): 65-99 mg/dL BUN 11 7 - 18 mg/dL 06/08/2024 7:05 AM [facility] Creatinine 0.76 0.70 - 1.30 mg/dL 06/08/2024 7:05 AM [facility] Calcium 9.2 8.5 - 10.1 mg/dL 06/08/2024 7:05 AM [facility] Total Protein 7.0 6.4 - 8.2 g/dL 06/08/2024 7:05 AM [facility] Albumin 3.3(L) 3.4 - 5.0 g/dL 06/08/2024 7:05 AM [facility] Globulin 3.7 2.5 - 5.0 g/dL 06/08/2024 7:05 AM [facility] Total Bilirubin 1.9(H) 0.2 - 1.0 mg/dL 06/08/2024 7:05 AM [facility] Comment:Use of this assay is not recommended for patients undergoing treatment with Eltrombopag due to the potential for falsely elevated results. Alkaline Phosphatase 265(H) 45 - 117 U/L 06/08/2024 7:05 AM [facility] Alanine Aminotransferase (ALT) 161(H) 12 - 78 U/L 06/08/2024 7:05 AM [facility] Aspartate Aminotransferase (AST) 62(H) 15 - 37 U/L 06/08/2024 7:05 AM [facility] eGFR (Creatinine) >60 >=60 mL/min/1.73 m2 06/08/2024 7:05 AM [facility] Comment: [facility] utilizes CKD-EPI Creatinine 2020 to report eGFR. Values < 60 mL/min/1.73 m2 may indicate CKD if present for more than three months AND creatinine is at steady state. The eGFR provides a rough estimate of kidney function. For further guidance, please refer to the CKD: Adult Aeronautical Drafter Signature pathway. Creatinine Delta 0.01 See Comment 04/24/2 025 7:05 AM EDT [facility] Comment: Delta creatinine is the difference [...] Morejon DO LAB BLOOD [place] [address], [facility] [phone] * Hepatitis C Ab with reflex to HCV PCR (2024 5:07 AM EDT) Hepatitis C Antibody Negative Negative 06/05/2024 8:32 AM EDT [facility] Blood Venipuncture / Unknown 2024 5:07 AM EDT 2024 6:18 AM EDT Chaim Rosales MD LAB BLOOD ORDERABLES Final Resul t [facility] [address] [place] [address] from Last 3 Months or Most Recently Relevant to Health Maintenance Insurance MEDICARE MANAGED [facility] MEDICARE MANAGED [facility] [place] [id number] MEDICARE MANAGED [facility] Advance Directives * Full Code (Latest Code Status on File) Date Activated Date Inactivated Comments 06/02/2024 12:47 PM 06/08/2024 4:56 PM Question Answer Comments With Whom was the Code Status Discussed? Patient Care Teams Knowledge Management Consultant Relationship Specialty Start Date End Date Nini Welsh PA [address] [place] [address] PCP - General Physician 2Nd Pressman 06/02/24
--- OUTSIDE RECORDS SUMMARY | 2025-01-15 13:00 | XMS_ITS | Encounter Summary ---
Author Organization [facility] Address [address] [place] [address] Care Team Providers Care Mold Maintenance Technician Name Role Phone Nini Welsh Primary Care Provider Encounter Details Date Type Department Care Team (Late st Contact Info) Description 08/24/[address] [facility] - Main Lab [address] [facility] [place] [address] Roge Werner PA [address] [place] [phone] Calculus of kidney Social History Tobacco Use [...] LAB CHEMISTRY METHOD 08/24/2024 12:10 PM EDT [facility] Blood Venous blood specimen / Unknown 08/24/2024 9:05 AM EDT 08/24/2024 11:07 AM EDT us Roge WISEMAN LAB BLOOD ORDERABLES Final Res [facility] [address] [place] [address], documented in this encounter Visit Diagnoses Diagnosis Calculus of kidney documented in this encounter Care Teams Mold Maintenance Technician Relationship Specialty Start Date End Date Nini Welsh PA [address] [place] [address] PCP - General Physician Supervisor Lace Tearing 08/24/24 documented as of this encounter
== END 2025-01-15 10:23 | disposition home or self-care (01) ==
LOC: HO.HMGAL 10:23
PROVIDERS: PCP Physician Assistant; Visit Provider Registered Nurse Emergency
DX: J30.89 Other allergic rhinitis (principal)
CPT/HCPCS: 95117; 95165

== ENCOUNTER 2025-01-29 13:41 | Outpatient (AMB) | payer OTHER, SELFPAY ==
--- OUTSIDE RECORDS SUMMARY | 2025-01-29 19:55 | XMS_ITS | Patient Health Record ---
Author Organization [facility] Address [address] [place] [address] Care Team Providers Care Research Affiliate Name Role Phone Nini Tuttle Primary Care Provider U alCastro Gutierrez Unavailable [phone] Reason For Referral No Information Medications Medication SIG (Take, Route, Frequency, Duration) Notes Start Date End Date Status Multi Adult Gummies - Tablet Chewable as directed Orally Acti ve Metaxalone 800 MG Tablet TAKE 1 TABLET BY MOUTH 3 TIMES A DAY Oral; Duration: 14 Not-Taking/TN N Vitamin C 500 MG Tablet 1 [...] Problem Screening for malignant neoplasm of colon (559949535) Encounter for screening for malignant neoplasm of colon (Z12.11) Active confirmed Problem History of adenomatous polyp of colon (279295895) History of adenomatous polyp of colon (Z86.010) Active confirmed Problem Preprocedural examination (338285950775350) Preprocedural examination (Z01.818) Active confirmed Plan Of Treatment Future Test Test Name Order Date COLONOSCOPY 04/11/2014 COLONOSCOPY 08/01/2019 Next Appt Details Provider Name:Castro Lopez , 02/20/2025 01:00:00 PM, [address] [facility], [address], [place], [address], Insurance Providers Payer Name Payer Address Payer Phone Subscriber Number Group Number Insured Name Patient Relationship to Insured Coverage Start Date Coverage End Date [facility] [address] [place] [address] [id number] JUDY HEWITT Self - patient is the insured Medical (General) History Medical History History ICD Code 01/03/2007 Colonoscopy--1 sm all tubular adenoma, sigmoid diverticulosis, internal hemorrhoids Chronic back pain Kidney hxhvwy-IJPR-kjgvbptlz Skull fracture Hypertension HTN Denies [place],DM,CVA,Lung disease,renal dise ase Sleep apnea on CPAP machine Hx of bronchitis in the winter Neg. screening colonoscopy in 07/2014 Surgical History Surgery Date(Month/Year) Spinal fusion C-spine fusion Carpal tunnel release Fractured skull Ulnar nerve entrapment Knee surgery
--- OUTSIDE RECORDS SUMMARY | 2025-01-29 19:55 | XMS_ITS | Clinical Summary ---
Author Organization [facility] Location Address [address] [place] [address] Phone Care Team Providers Care Monitoring Tech Name Role Phone iNni Welsh Primary Care Provider [phone] Social History Tobacco Use Types Packs/Day Years [...] ID:[id number] Group ID:ICO Type:Not on file Address: [place] [address] [place] [address] Care Teams Monitoring Tech Relationship Specialty Start Date End Date Nini Welsh PA [address] [facility] [place] [place] [id number] PCP - General Physician Power Tool Repairer 08/24/24
--- OUTSIDE RECORDS SUMMARY | 2025-01-29 19:55 | XMS_ITS | Clinical Summary ---
Author Organization [address] Address [address] [place] [phone] Phone Care Team Providers Care Woodwind Instruments Inspector Name Role Phone Nini Welsh Primary Care Provider [phone] Allergies Active Allergy Reactions Criticality Noted Date [...] Years Used Date Smoking Tobacco: Never Assessed [facility] Utilities Answer Date Recorded In the past 12 months has [employer], gas, oil, or water [employer] threatened to shut off services in your [...] your living situation today? I have a [facility] place to live 06/02/2024 Housing Stability Not [...] - 107 mmol/L 06/08/2024 7:05 AM EDT [facility] CO2 29 21 - 32 mmol/L [...] m2 06/08/2024 7:05 AM [facility] Comment: [facility] utilizes CKD-EPI Creatinine 2020 to report eGFR. Values < 60 mL/min/1.73 m2 may indicate CKD if present for more than three months AND creatinine is at steady state. The eGFR provides a rough estimate of kidney function. For further guidance, please refer to the CKD: Adult Stroke Program Coordinator Signature pathway. Creatinine Delta 0.01 See Comment 04/24/2 025 7:05 AM EDT [facility] Comment: Delta creatinine is the difference [...] Morejon DO LAB [place] [address], [facility] [phone] * Hepatitis C Ab with reflex to HCV PCR (2024 5:07 AM EDT) Hepatitis C Antibody Negative Negative 06/05/2024 8:32 AM EDT [facility] Blood Venipuncture / Unknown 2024 5:07 AM EDT 2024 6:18 AM EDT Chaim Rosales MD LAB BLOOD ORDERABLES Final Resul t [facility] [address] [place] [address] from Last 3 Months or Most Recently Relevant to Health Maintenance Insurance MEDICARE MANAGED [facility] MEDICARE [place] [facility] [place] [id number] MEDICARE MANAGED [facility] Advance Directives * Full Code (Latest Code Status on File) Date Activated Date Inactivated Comments 06/02/2024 12:47 PM 06/08/2024 4:56 PM Question Answer Comments With Whom was the Code Status Discussed? Patient Care Teams Woodwind Instruments Inspector Relationship Specialty Start Date End Date Nini Welsh PA [address] [place] [address] PCP - General Physician Gauge And Instrument Inspector 06/02/24
--- OUTSIDE RECORDS SUMMARY | 2025-01-29 19:55 | XMS_ITS | Encounter Summary ---
Author Organization [facility] Address [address] [place] [address] Care Team Providers Care Environmental Health Sanitarian Name Role Phone Nini Welsh Primary Care Provider [phone] Encounter Details Date Type Department Care Team (Late st Contact Info) Description 08/24/2024 Lab Requisition [facility] - Main Lab [address] [facility] [place] [address] Roge Werner PA [address] [place] [phone] Calculus of kidney Social History Tobacco Use [...] LAB CHEMISTRY METHOD 08/24/2024 12:10 PM EDT [facility]) [facility] Blood Venous blood specimen / Unknown 08/24/2024 9:05 AM EDT 08/24/2024 11:07 AM EDT us Roge WISEMAN LAB BLOOD ORDERABLES Final Res [facility] [address] [place] [address], documented in this encounter Visit Diagnoses Diagnosis Calculus of kidney documented in this encounter Care Teams Environmental Health Sanitarian Relationship Specialty Start Date End Date Nini Welsh PA [address] [place] [address] PCP - General Physician Cps Team Lead 08/24/24 documented as of this encounter
== END 2025-01-29 13:44 | disposition home or self-care (01) ==
LOC: HO.HMGAL 13:41
PROVIDERS: PCP Physician Assistant; Visit Provider Registered Nurse Emergency
DX: J30.89 Other allergic rhinitis (principal)
CPT/HCPCS: 95117; 95165